=== PATIENT | female | born 2000 | race Caucasian/White ===

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

== ENCOUNTER → 2020-04-23 | Outpatient (CLI) | payer BC, OTHER, MEDICAID ==
[~2020-04-23] MED LIST changes: +ACET-683 PO; -PHEN-593 PO; +PHEN1TAB73 PO
--- NOTE | 2020-04-23 14:32 | REP ---
INDICATION: IUD CHECK COMPARISON: 11/05/2017 TECHNIQUE: Transabdominal pelvic ultrasound followed by transvaginal examination for better evaluation of the endometrium and adnexa with color Doppler evaluation of the ovaries. FINDINGS: Bladder is unremarkable and measures 8.3 x 9.4 x 2.9 cm. Normal retroverted uterus measures 6.8 x 4.2 x 4.7 cm. The endometrial complex appears normal and IUD is identified within central satisfactory position. No uterine abnormalities identified. Bilateral ovaries are normal in appearance and vascularity without evidence for torsion. Right ovary measures 3.7 x 2.1 x 1.9 cm; R I = 0.47. Left ovary measures 2.9 x 1.1 x 1.8 cm; R I = 0.52. No pelvic fluid or adnexal mass lesion IMPRESSION: Normal examination. IUD in satisfactory position. <Electronically signed by Juvenal Rosas > 04/23/20 [id number]
== END ==
LOC: M RAD 09:08
PROVIDERS: ATTEND Advanced Practice Midwife
DX: Z30.431 Encounter for routine checking of intrauterine contraceptive device (principal)

== ENCOUNTER 2020-08-18 09:18 | Emergency (ER) | payer BC, OTHER, MEDICAID ==
[~2020-08-18] VITALS: Ht 170.2 cm; Wt 68.6 kg
[2020-08-18] MEDS ORDERED: NS 1,000 ML IV ONE (09:45)
[2020-08-18] MEDS ORDERED: METOCLOPRAMIDE INJ 10MG/2ML VIAL (J2765 PER 1) IV ONE (09:45)
[2020-08-18 10:51] LABS: BASO % 0.5 % (0.0-1.0); EOS % 0.3 % (0.0-3.0); HEMATOCRIT 43.9 % (36.0-47.0); HEMOGLOBIN 15.5 g/dl (12.0-15.5); LYMPH # 0.9 10^3/uL (1.5-5.0); MEAN CORPUSCULAR HGB CONC 35.3 g/dl (32.0-36.5); MEAN CORPUSCULAR VOLUME 85.1 fl (80.0-96.0); MONO # 0.4 10^3/uL (0.0-0.8); MONO % 9.8 % (2.0-8.0); NEUTROPHILS # 2.6 10^3/uL (1.5-8.5); NEUTROPHILS % 65.9 % (36.0-66.0); PLATELET COUNT, AUTOMATED 171 10^3/uL (150-450); RED BLOOD COUNT 5.16 10^6/uL (4.00-5.40)
[2020-08-18 10:53] LABS: HCG, SERUM QUALITATIVE NEGATIVE (NEGATIVE)
[2020-08-18 10:58] LABS: ALBUMIN 4.1 GM/DL (3.2-5.2); ALT/SGPT 22 U/L (12-78); BILIRUBIN,DIRECT < 0.1 MG/DL (0.0-0.2); BILIRUBIN,TOTAL 1.1 MG/DL (0.2-1.0); BLOOD UREA NITROGEN 14 MG/DL (7-18); CALCIUM LEVEL 9.4 MG/DL (8.5-10.1); CARBON DIOXIDE LEVEL 20 MEQ/L (21-32); CHLORIDE LEVEL 107 MEQ/L (98-107); CK-MB VALUE MASS < 1.0 NG/ML (<3.6); CPK CREATINE PHOSPHOKINASE 150 U/L (26-192); CREATININE FOR GFR 0.82 MG/DL (0.55-1.30); GLUCOSE, FASTING 86 MG/DL (70-100); LIPASE 78 U/L (73-393); MB/CK RELATIVE INDEX 0.67 (< OR =4); NT-PRO BNP 14 PG/ML (<125); POTASSIUM SERUM 4.7 MEQ/L (3.5-5.1); SODIUM LEVEL 137 MEQ/L (136-145); TOTAL PROTEIN 8.6 GM/DL (6.4-8.2); TROPONIN I < 0.02 NG/ML (< 0.10)
--- NOTE | 2020-08-18 12:51 | REP ---
INDICATION: Abdominal Pain COMPARISON: None. TECHNIQUE: Upright view of the chest with supine and upright views of the abdomen and pelvis. FINDINGS: Frontal upright view of the chest demonstrates no acute cardiopulmonary process or free air below the diaphragm to suspect pneumoperitoneum. Supine and upright views of the abdomen and pelvis demonstrate nonspecific bowel gas pattern without obstruction or perforation. No organomegaly. Prior cholecystectomy. No abnormal calcifications. Skeletal structures normal for age. IUD within the pelvis. IMPRESSION: Nonspecific bowel gas pattern. <Electronically signed by Juvenal Rosas > 08/18/20 [id number]
[2020-08-18 14:47] VITALS: BP 119/69
--- NOTE | 2020-08-19 09:23 | ECGEPIP ---
[facility] - ED Test Date: 2020-08-18 Pat Name: RONALD MCKEE Department: Room: - Gender: Female Horse Identifier: : 2000 Requested By: ALEXIS Colon PA-C Order Number: [id number] Reading MD: Amalia Kuhn Measurements Intervals [place] Rate: 78 P: 74 UT: 138 QRS: 63 QRSD: 86 T: 0 QT: 402 QTc: 458 Interpretive Statements Normal sinus rhythm with sinus arrhythmia Nonspecific ST and T wave abnormality No prior Electronically Signed on 08-19-2020 9:22:56 EDT by Amalia Kuhn
== END 2020-08-18 14:53 | disposition home or self-care (01) ==
LOC: M ED 09:18
DX: A08.32 Astrovirus enteritis (principal); R10.9 Unspecified abdominal pain; E86.0 Dehydration; R50.9 Fever, unspecified; R51.9 Headache, unspecified; Z88.2 Allergy status to sulfonamides
CPT/HCPCS: 74021; 80048; 80076; 81001; 82550; 82553; 83690; 83880; 84443; 84484; 84703; 85025; 85379; 87088; 87505; 87804; 93005; 93041; 94760; 96361; 96374; 99284; J2765

== ENCOUNTER 2020-12-04 08:28 | Emergency (ER) | payer BC, OTHER, MEDICAID ==
[~2020-12-04] VITALS: Ht 170.2 cm; Wt 67.0 kg
[2020-12-04 08:28] VITALS: BP 117/64
[2020-12-04] MEDS ORDERED: MIRE1IUD IU (08:34)
[2020-12-04 11:09] LABS: BASO % 0.1 % (0.0-1.0); EOS % 0.2 % (0.0-3.0); HEMATOCRIT 35.7 % (36.0-47.0); HEMOGLOBIN 12.3 g/dl (12.0-15.5); LYMPH # 0.6 10^3/uL (1.5-5.0); MEAN CORPUSCULAR HEMOGLOBIN 30.3 pg (27.0-33.0); MEAN CORPUSCULAR HGB CONC 34.5 g/dl (32.0-36.5); MEAN CORPUSCULAR VOLUME 87.9 fl (80.0-96.0); MONO # 0.6 10^3/uL (0.0-0.8); MONO % 6.2 % (2.0-8.0); NEUTROPHILS # 7.8 10^3/uL (1.5-8.5); NEUTROPHILS % 86.2 % (36.0-66.0); PLATELET COUNT, AUTOMATED 116 10^3/uL (150-450); RED BLOOD COUNT 4.06 10^6/uL (4.00-5.40); WHITE BLOOD COUNT 9.1 10^3/uL (4.0-10.0)
[2020-12-04 11:50] LABS: MONO REFLEX EBV COMP NEGATIVE (NEGATIVE)
[2020-12-04] MEDS ORDERED: CEPH500T PO (11:54)
[2020-12-05 14:09] LABS: EBV AB TO NUCLEAR ANTIGEN >600.0 U/mL (0.0-17.9); EBV VIRAL CAPSID AG IgG >600.0 U/mL (0.0-17.9); EBV VIRAL CAPSID AG IgM <36.0 U/mL (0.0-35.9)
== END 2020-12-04 12:03 | disposition home or self-care (01) ==
LOC: M ED 08:28
DX: J03.90 Acute tonsillitis, unspecified (principal); R50.9 Fever, unspecified; Z88.2 Allergy status to sulfonamides

== ENCOUNTER 2021-02-05 07:54 | Emergency (ER) | payer BC, OTHER, MEDICAID ==
[~2021-02-05] VITALS: Ht 170.2 cm; Wt 66.8 kg
[~2021-02-05 07:54] MED LIST changes: +CEPH500T PO; +MIRE1IUD IU
--- OUTSIDE RECORDS SUMMARY | 2021-02-05 08:08 | CCD ---
Author Author [facility] Organization [facility] Address Unknown Phone Unavailable Care Team Providers Care Senior Manufacturing Test Engineer Name Role Phone Thabet, Nagib RPA-C Unavailable Unavailable Thabet, Nagib RPA-C Unavailable Unavailable Thabet, Nagib RPA-C Unavailable Unavailable Thabet, Nagib RPA-C Unavailable Unavailable Thabet, Nagib RPA-C Unavailable Unavailable Thabet, Nagib RPA-C Unavailable Unavailable Thabet, Nagib RPA-C Unavailable Unavailable Thabet, Nagib RPA-C Unavailable Unavailable Thabet, Nagib RPA-C Unavailable Unavailable Thabet, Nagib RPA-C Unavailable Unavailable Thabet, Nagib RPA-C Unavailable Unavailable Thabet, Nagib RPA-C Unavailable Unavailable Thabet, Nagib RPA-C Unavailable Unavailable Thabet, Nagib RPA-C Unavailable Unavailable Thabet, Nagib RPA-C Unavailable Unavailable Thabet, Nagib RPA-C Unavailable Unavailable Thabet, Nagib RPA-C Unavailable Unavailable Thabet, Nagib RPA-C Unavailable Unavailable Thabet, Nagib RPA-C Unavailable Unavailable Thabet, Nagib RPA-C Unavailable Unavailable Thabet, Nagib RPA-C Unavailable Unavailable Thabet, Nagib RPA-C Unavailable Unavailable Thabet, Nagib RPA-C Unavailable Unavailable Thabet, Nagib RPA-C Unavailable Unavailable Thabet, Nagib RPA-C Unavailable Unavailable Thabet, Nagib RPA-C Unavailable Unavailable Thabet, Nagib RPA-C Unavailable Unavailable Feola, T Tia PA Unavailable Unavailable Feola, T Tia PA Unavailable Unavailable Feola, T Tia PA Unavailable Unavailable Feola, T Tia PA Unavailable Unavailable Feola, T Tia PA Unavailable Unavailable Feola, T Tia PA Unavailable Unavailable Feola, T Tia PA Unavailable Unavailable Feola, T Tia PA Unavailable Unavailable Feola, T Tia PA Unavailable Unavailable Feola, T Tia PA Unavailable Unavailable Feola, T Tia PA Unavailable Unavailable Feola, T Tia PA Unavailable Unavailable Feola, T Tia PA Unavailable Unavailable Feola, T Tia PA Unavailable Unavailable Feola, T Tia PA Unavailable Unavailable Feola, T Tia PA Unavailable Unavailable Feola, T Tia PA Unavailable Unavailable Feola, T Tia PA Unavailable Unavailable Feola, T Tia PA Unavailable Unavailable Feola, T Tia PA Unavailable Unavailable Feola, T Tia PA Unavailable Unavailable Feola, T Tia PA Unavailable Unavailable Feola, T Tia PA Unavailable Unavailable Feola, T Tia PA Unavailable Unavailable Feola, T Tia PA Unavailable Unavailable Feola, T Tia PA Unavailable Unavailable Feola, T Tia PA Unavailable Unavailable Feola, T Tia PA Unavailable Unavailable Feola, T Tia PA Unavailable Unavailable Feola, T Tia PA Unavailable Unavailable Feola, T Tia PA Unavailable Unavailable Feola, T Tia PA Unavailable Unavailable Feola, T Tia PA Unavailable Unavailable Feola, T Tia PA Unavailable Unavailable Feola, T Tia PA Unavailable Unavailable Feola, T Tia PA Unavailable Unavailable Feola, T Tia PA Unavailable Unavailable Feola, T Tia PA Unavailable Unavailable Feola, T Tia PA Unavailable Unavailable Feola, T Tia PA Unavailable Unavailable Feola, T Tia PA Unavailable Unavailable Monnat PA, Lexie PA Unavailable Unavailable Monnat PA, Lexie PA Unavailable Unavailable Monnat PA, Lexie PA Unavailable Unavailable Monnat PA, Lexie PA Unavailable Unavailable BirAdolfo bonner PA Unavailable Unavailable BirAdolfo bonner PA Unavailable Unavailable BirAdolfo bonner PA Unavailable Unavailable BirklAdolfo tidwellel PA Unavailable Unavailable Birklin, Adolfo Aparicioel PA Unavailable Unavailable Birklin, Adolfo Aparicioel PA Unavailable Unavailable Birklin, Adolfo Aparicioel PA Unavailable Unavailable Birklin, Adolfo Aparicioel PA Unavailable Unavailable Birklin, Adolfo Aparicioel PA Unavailable Unavailable Birklin, Adolfo Aparicioel PA Unavailable Unavailable Birklin, Adolfo Aparicioel PA Unavailable Unavailable Birklin, Adolfo Aparicioel PA Unavailable Unavailable Birklin, Adolfo Aparicioel PA Unavailable Unavailable Birklin, Adolfo Aparicioel PA Unavailable Unavailable Birklin, Adolfo Aparicioel PA Unavailable Unavailable Birklin, Adolfo Juanjo PA Unavailable Unavailable Birklin, Adolfo Juanjo PA Unavailable Unavailable Birklin, Adolfo Aparicioel PA Unavailable Unavailable Birklin, Adolfo Aparicioel PA Unavailable Unavailable Birklin, Adolfo Aparicioel PA Unavailable Unavailable Birklin, Adolfo Aparicioel PA Unavailable Unavailable Birklin, Adolfo Aparicioel PA Unavailable Unavailable Birklin, Adolfo Aparicioel PA Unavailable Unavailable Birklin, Adolfo Aparicioel PA Unavailable Unavailable Birklin, Adolfo Aparicioel PA Unavailable Unavailable Birklin, Adolfo Aparicioel PA Unavailable Unavailable Birklin, Adolfo Aparicioel PA Unavailable Unavailable Birklin, Adolfo Aparicioel PA Unavailable Unavailable Re-disclosure Warning The records that you are about to access may contain information from federally-assisted alcohol or drug abuse programs. If such information is present, then the following federally mandated warning applies: This information has been disclosed to you from records protected by federal confidentiality rules (42 CFR part 2). The federal rules prohibit you from making any further disclosure of this information unless further disclosure is expressly permitted by the written consent of the person to whom it pertains or as otherwise permitted by 42 CFR part 2. A general authorization for the release of medical or other information is NOT sufficient for this purpose. The Federal rules restrict any use of the information to criminally investigate or prosecute any alcohol or drug abuse patient.The records that you are about to access may contain highly sensitive health information, the redisclosure of which is protected by Article 27-F of the [facility] Public Health law. If you continue you may have access to information: Regarding HIV / AIDS; Provided by facilities licensed or operated by the [facility] Office of Mental Health; or Provided by the [facility] Office for People With Developmental Disabilities. If such information is present, then the following [facility] mandated warning applies: This information has been disclosed to you from confidential records which are protected by state law. State law prohibits you from making any further disclosure of this information without the specific written consent of the person to whom it pertains, or as otherwise permitted by law. Any unauthorized further disclosure in violation of state law may result in a fine or fci sentence or both. A general authorization for the release of medical or other information is NOT sufficient authorization for further disc losure. Family History Family Member Name Family Member Gender Family Member Status Date o f Status Description Data Source(s) Unknown Male Problem MEDENT ([facility]) Unknown Unknown Problem MEDENT ([facility]) m great grandparents Encounters Encounter Providers Location Date Indications Data Source(s ) Outpatient Attender: Juanjo LIU 12/09/2020 12:00:[address] [facility] Outpatient Attender: Juanjo Taylor PAReferrer: Juanjo LIU [id number] 10/25/2020 12:00:[address] [facility] Outpatient Referrer: Juanjo LIU 10/23/2020 12 :00:00 AM EDT Unspecified internal derangement of right knee [facility] Unspecified internal derangement of righ t knee Outpatient Attender: Lexie LIU 10/09 11:34:16 AM EDT - 10/09/2020 01:04:52 PM EDT [facility] ([facility] ) Outpatient Attender: Juanjo LIU [id number] 09/20 12:00:00 AM EDT - 10/18/2020 10:26:[address] [facility] Outpatient Attender: Bill Moreno RPA-C 08:24:14 PM EDT - 09/14/2020 09:10:37 PM EDT [facility] ([facility]) Outpatient 08/17/2020 06:36:44 PM EDT [facility] ([facility]) Outpatient Attender: Tia LIU 021 10:58:09 AM EDT - 08/08/2020 11:11:20 AM EDT [facility] ([facility] ) [place] [address] [address] 04/29/2020 12:00:00 AM EST eCW1 ([facility]) [place] [address] [address] 04/29/2020 12:00:00 AM EST eCW1 ([facility]) [place] [address] [address] 12/28/2019 12:00:00 AM EDT eCW1 ([facility]) Immunizations Vaccine Date Status Description Data Source(s) COVID-19 VACCINE Moderna 01/07/2021 12:00:00 AM EDT completed [facility] Vaccine Series Complete: YESThis Data wa s Submitted to [facility] Via GetBack. COVID-19 VACCINE Moderna 12/10/2020 12:00:00 AM EDT completed [facility] Vaccine Series Complete: NOThis Data was Submitted to [facility] Via GetBack. Medications Medication Brand Name Start Date Product Form Dose Route Admi nistrative Instructions Pharmacy Instructions Status Indications Reaction Description Data Source(s) 100 mcg/0.5 mL 12/10/2020 12:00:00 AM EDT suspension 0 INJECT DIRECTED INJECT DIRECTED SOLD: 12/10/2020 [facility] 100 mcg/0.5 mL 12/10/2020 12:00:00 AM EDT suspension 0 INJECT DIRECTED INJECT DIRECTED SOLD: 01/07/2021 [facility] Sertraline 50 MG Oral Tablet Sertraline HCl 50 MG Sertraline HCl 50 MG 12/28/2019 12:00:00 AM EDT 1.0 {tablet} active Sertraline HCl 50 MG eCW1 ([facility]) Sertraline 50 MG Oral Tablet Sertraline HCl 50 MG Sertraline HCl 50 MG 12/28/2019 12:00:00 AM EDT 1.0 {tablet} active Sertraline HCl 50 MG eCW1 ([facility]) Sertraline 50 MG Oral Tablet Sertraline HCl 50 MG Sertraline HCl 50 MG 12/28/2019 12:00:00 AM EDT 1.0 {tablet} active Sertraline HCl 50 MG eCW1 ([facility]) 21 DAY Ethinyl Estradiol 0.588541 MG/HR / Etonogestrel 0.005 MG/HR Vaginal Ring etonogestrel-ethinyl estradiol (NUVARING) 0.12-0.015 MG/24HR vaginal ring etonogestrel-ethinyl estradiol (NUVARING) 0.12-0.015 MG/24HR vaginal ring 02/03/2018 12:00:00 AM EST aborted Insert vaginally and leave in place for 3 consecutive weeks, then remove for 1 week. [facility] Dicyclomine Hydrochloride 20 MG Oral Tablet dicyclomin e (BENTYL) 20 MG tablet dicyclomine (BENTYL) 20 MG tablet 12/30/2017 12:00:00 AM EDT aborted TK 1 T PO TID 30 MINUTES BEFORE MEALS MI N [facility] Omeprazole 20 MG Delayed Release Oral Ca psule omeprazole (PRILOSEC) 20 MG capsule omeprazole (PRILOSEC) 20 MG capsule 20 mg Oral aborted Take 20 mg by mouth daily [facility] Simethicone 80 MG Chewable Tablet simethicone (MYLICON ) 80 MG chewable tablet simethicone (MYLICON) 80 MG chewable tablet 80 mg Oral aborted Chew 80 mg by Mouth every 6 (six) hours as needed for Flatulence [facility] Insurance Providers Payer name Policy type / Coverage type Policy ID Covered alliance party ID Covered alliance party's relationship to sanchez Policy Sanchze Plan Information [facility] Maintenance [facility] ([facility]) [id number] Family Dependent [id number] [facility] ([facility]) 8 [id number] Family Dependent [id number] [facility] [id number] Chi [id number] EMPIRE PLAN [facility] U [id number] Child [id number] [facility] [id number] Chi [id number] MPN OP HOSP ONLY U [id number] Child [id number] EXCELLUS BCBS [id number] Chi YLS [id number] [facility] [id number] FA2 [id number] BCBS EMPIRE CAT[place]INA DIV [id number] FA2 [id number] BCBS EMPIRE CAT[place]INA DIV [id number] FA2 [id number] [employer] [facility] [id number] FA2 [id number] Sayner Plan F [id number] PARENT [id number] [employer] [id number] FA2 [id number] BCBS EMPIRE CATALINA DIV [id number] FA2 [id number] [employer] [id number] FA2 [id number] [facility] Commercial Insurance Co. [id number] Parent [id number] [facility] emp [id number] Emplo ortiz [id number] [facility] emp [id number] Employee [id number] RPR- Needs Payer Match [id number] Parent [id number] [place] Commercial [employer] Co. [id number] Parent [id number] EXCELLUS BCBS PI PI UHC PI PI BCBS EMPIRE CAT[place]INA DIV [id number] FA2 [id number] [place] [id number] SP [id number] P [id number] BCBS EMPIRE CAT[place]INA DIV [id number] FA2 [id number] [employer] [id number] FA2 [id number] [place] [id number] SP [id number] MEDICAID M [id number] S [id number] [employer] O [id number] S [id number] EMEDNY [id number] SP [id number] UNITED HEALTHCARE [id number] FA2 [id number] BCBS EMPIRE CAT[place]INA DIV [id number] FA2 [id number] BCBS EMPIRE [id number] CHILD [id number] [facility] [id number] CHILD [id number] [facility] [place] Commercial [id number] Family Dependent [id number] ANSI-Commercial [id number] ANSI-Commercial [id number] ANSI-Commercial [id number] ANSI-Commercial [id number] [facility] [place] [id number] Family Dependent [id number] ANSI-Commercial [id number] [facility] [place] [id number] Family Dependent 8 [id number] [facility] [place] [id number] Family Dependent [id number] Problems, Conditions, and Diagnoses Code Display Name Description Problem Type Effective Dates Data Source(s) M25.461 Effusion, right knee Effusion, right knee Diagnosis 10/23/2020 03:17:07 PM T [facility] M23.91 Unspecified internal derangement of righ t knee Unspecified internal derangement of right knee Diagnosis 10/23/2020 03:17:[address] [facility] Surgeries/Procedures No Information Results ID Date Data Source [id number] 12/31/2020 12:00:00 AM EDT [facility] Name Value Range Interpretation Code Description Data Ivelisse rce(s) Supporting Document(s) SARS coronavirus 2 Ag NEGATIVE [facility] This lab was ordered by [facility] and reported by [facility]. ID Date Data Source [id number] 12/24/2020 12:00:00 AM EDT [facility] Name Value Range Interpretation Code Description Data Ivelisse rce(s) Supporting Document(s) SARS coronavirus 2 Ag NEGATIVE [facility] This lab was ordered by [facility] and reported by [facility]. ID Date Data Source [id number] 12/17/2020 12:00:00 AM EDT [facility] Name Value Range Interpretation Code Description Data Ivelisse rce(s) Supporting Document(s) SARS coronavirus 2 Ag NEGATIVE [facility] This lab was ordered by [facility] and reported by [facility]. ID Date Data Source [id number] 12/10/2020 12:00:00 AM EDT [facility] Name Value Range Interpretation Code Description Data Ivelisse rce(s) Supporting Document(s) SARS coronavirus 2 Ag NEGATIVE [facility] reported by [facility]. ID Date Data Source [id number] 11/28/2020 12:00:00 AM EDT [facility] Name Value Range Interpretation Code Description Data Ivelisse rce(s) Supporting Document(s) SARS coronavirus 2 Ag NEGATIVE [facility] This lab was ordered by [facility] and reported by [facility]. ID Date Data Source [id number] 10/25/2020 10:05:45 AM EDT [facility] Name Value Range Interpretation Code Description Data Ivelisse rce(s) Supporting Document(s) Progress Note [facility] OPLYHk7lArCAOsUq21/YAIebEAUtt4OkQItzURy9XBdeGLSlI2RwTHL7oU8pVOM0LTeIHlNjZoJcMFF2 [facility] [file] ICAgICAgICAgICAgICAgICAgICAgICAgICAgICAgICAgICAgICAgICAgICAgICAgICAgICAgICAgICAg ICAgICAgICAgICANCiAgICAgICAgICAgICAgICAgIC AgICAgICAgICAgICAgICAgICAgICAgICAgICAgICAgICAgICAgICAgICAgICAgICAgICAgICAgICAgIC AgICAgICAgICAgICAgICAgICAgICANCiAgICAgICAgICAgICAgICAgICAgICAgICAgICAgICAgICAgIC AgICAgICAgICAgICAgICAgICAgICAgICAgICAgICAg ICAgICAgICAgICAgICAgICAgICAgICAgICAgICAgICANCiAgICAgICAgICAgICAgICAgICAgICAgICAg ICAgICAgICAgICAgICAgICAgICAgICAgICAgICAgICAgICAgICAgICAgICAgICAgICAgICAgICAgICAg ICAgICAgICAgICAgICANCiAgICAgICAgICAgICAgIC AgICAgICAgICAgICAgICAgICAgICAgICAgICAgICAgICAgICAgICAgICAgICAgICAgICAgICAgICAgIC AgICAgICAgICAgICAgICAgICAgICAgICANCiAgICAgICAgICAgICAgICAgICAgICAgICAgICAgICAgIC AgICAgICAgICAgICAgICAgICAgICAgICAgICAgICAg ICAgICAgICAgICAgICAgICAgICAgICAgICAgICAgICAgICANCiAgICAgICAgICAgICAgICAgICAgICAg ICAgICAgICAgICAgICAgICAgICAgICAgICAgICAgICAgICAgICAgICAgICAgICAgICAgICAgICAgICAg ICAgICAgICAgICAgICAgICANCiAgICAgICAgICAgIC AgICAgICAgICAgICAgICAgICAgICAgICAgICAgICAgICAgICAgICAgICAgICAgICAgICAgICAgICAgIC AgICAgICAgICAgICAgICAgICAgICAgICAgICANCiAgICAgICAgICAgICAgICAgICAgICAgICAgICAgIC AgICAgICAgICAgICAgICAgICAgICAgICAgICAgICAg ICAgICAgICAgICAgICAgICAgICAgICAgICAgICAgICAgICAgICANCiAgICAgICAgICAgICAgICAgICAg ICAgICAgICAgICAgICAgICAgICAgICAgICAgICAgICAgICAgICAgICAgICAgICAgICAgICAgICAgICAg ICAgICAgICAgICAgICAgICAgICANCjw/dLQvW6pagN PiudE7R6viIq5VWz0TOW3ei1XwDMBxKPlpmwDiJbyLWaQiCSYhSukTWff1NEyyPQ5IgAQgJ5NfB3MtDI tqSB0GTKOxCZPqoCAtRHYeTNIaFuK6KEHyCBgxNQ1IvJKqPDcnIOTaNOVzJtQaUPJyMH2TIWItT074fy UjGu2XSf3NHaLpPF7nay1TAbnzJVMgSvgQFna4XVoz MM3BjVXviULrJUIkDDJVEwVyJ8lqh6VjJqwxPHZBBUujIO9Fu8LbwVAhEKa+Tj3TAU3go6TfVAdrMRHl CR7bkc7AVJuZYzIsG4PwmUtfCKDmd4mqRIDwMQ4slMCnJMB7OYPgcklglNJRTSHuGDUPbQRbiClaULFR LTLhpQN6CpOgQyXgSQNtUOlxLBDJDIgQGwGxS6Jbv6 MzZuY8IPZdJvEuCZfqAUCiYhU0NG71rJgmMI6OSIDuDSJdAI53ZGP9GRWkKt0IUb3FBkYaVK9mtx4PZA ZiKDOmLpeCSrx9ULklQQ8UyKUgR6EyjSHcp7bTEtYhV7MWVVX3DMRmGe4LLSKqEgRaOGBxSXzeWQ7dEG FwWOTChBnllxT1AV5NHJ2fupIhIH9BFdZkTh9kDj6D TxZjJ4LpH8HfBJMfWPQCAEwcFM7IFQirTW4dOU2Vq3ROuIAacL0asq4LLPZaXMPdIieczs7JZllkA2L9 sUfuZRFcVeqzWVWHWBmtVM3UDJZuAZG9DONbRzOqFZXIDiYwO83mWQ3DQ5Fad64mFiX0TFCxVcFjUVxn SQ30pZptbkVgcPWhvVktXV7ZHh2+DQplbmRvYmoNCn keIAFLReIqOBKXUhMpSYTgNHObGJQyNgA2PqOaPh6QORFpCYVzRYAwAcTzLHSvYBYuFErsFFOyNJHwGh I1PBAtOCUvBH2ABkRbPYLnYxX1QcViUBSqAPXrdv4DJBApFVGdSMO2QhNiOZYcGTToWHfrLZEaSQJ3RJ sgAVHsZJBhQX5KZgGyJEExTLClMcutJJOtWNLcua4M FNWsRBTlPgOjDHVgKMScTYAcMElsKZMiDJE3CxEzQIXuPWQxMJ8PUgBtLEFpNYrwFCMdYYQzCESozj4T FIRbIERyOFO1HqYgJIEcIAVqSMxcQNKzEXT8MMV4MMYiQBSwLM0RAcXnYZHnOJz2TzijQNKyWLKzxu5M XPEfSCGmBTbeCNKfCFPoVPGuDClwGYDkVGI8EBJ5VW CqWKFgKT8IZkKsAPGrHlZlTMoaPMYwGLBoxt2DOKGtULAcFNW8OqXaZGXlHQAnOMypEBRwDBDjITijUP IdDVMaXB5YLkHbZSQzYoWnAgLaUSUrPNYymw7CAPSdJPCnTjC0CsOpXHVfBOBbGPwbZCLeURLsLlXhCK KhTTWzTX1USuDdSRSvBfI5RMJdXYRzLSRjqd5YAGXb GXDyWwN6GjBoPIDwOWHoSEkfRUZhSFX2DJT1YZAzCGMnGQ0YKsYnJLOpHvZ7HyPqNSPvFBMqod0EMIMt OYWcDWtnBMChOOMeUTGhSRjaVDFdJJN0VUT6FLQrWGHdYC8XVbQuZLYrDxZqMHLvRXAvSFSstq2UEGMh GDEoSmMwVVAgRVUaPKPdBIgpDVFgTUGpIHH9QBDnLL KcHL0CJvPxGKOaIaMyLXehOOLqSVBesq9ULRUuMTUdUJVbWaGoVTWnTSFuCArcORJlXZQpJGCjPEWuHH KcDW5OMiQuQUCkErSxKPJwSDShCHDwnd4OQIOvNPLdBwIfASWmREFcRWSyBAqlZHPyMOKuCCO5WWRkUE NjVY8FHbIkNSNhGbZ1CXFiCGEyFIKdkg7KBZMhBKNe YrE9YbEaIETuEWXvFKmpNEGbAHT3IYY5TWFaNVHgGD6IBdLgGHSaUlS5KCcnZSZiNCMqfh2CZEHtFMMk WXx4RkBsEAEsKFWhAAw9lsNnjZVzPVq2YC6JC9TqdxVkSLXBMc1Be253SWQhTXBgXy8BG7rtId2iTIKd JWDCQp4JVVm4QQx0YzxtYrMeCVAgFWC9AYSdQTA8O6 MxMzgxYzgzNTA+SBxsJbFhROE4THVmXFUgErIqRTMbKyrbNjIiQHNoNRB8CF0rUKJKLc3+DQpzdGFydH zeHRXKBaA6WAe0EPqhTSYQKi1X ID Date Data Source [id number] 10/23/2020 04:26:18 PM EDT [facility] MR EXTREMITY LOWER JOINT WITHOUT CONTRAS T [id number] RESULTInterpreted by:Bhupinder Warren MDEXAM: MRI Right Knee Without ContrastHISTORY: Medial Knee pain with instability, history of patellar tendinitis, partial tear, symptoms on clinical exam with mild knee effusionCOMPARISON: Knee radiographs 10/09/2020TECHNIQUE: Multiplanar multisequence MR imaging of the right knee was performed. Intravenous gadolinium contrast was not administered. Exam was performed on a 3.0 Lynda GE MRI unit. FINDINGS: The anterior and posterior cruciate ligaments are intact. Medial and lateral collateral ligaments are intact. Quadriceps tendon complex and patellar tendon are also intact.Medial Compartment: The medial meniscus and articular cartilage are intact. Lateral Compartment: There is intermediate intrasubstance signal within the central anterior horn lateral meniscus which extends to the inferior articular surface on a single sagittal image, suspicious for a nonspecific oblique undersurface meniscal tear. No articular cartilage defect.Patellofemoral Compartment: Patellar and trochlear articular cartilage are normal. Patella is normal in position at the trochlear groove and the retinacula are intact. 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 No adjacent patellar tendon tear or tendinosis.No knee joint effusion or popliteal cyst. No fracture or significant marrow signal abnormality.IMPRESSION: 1. 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 No adjacent tendon tear or tendinosis.2. Small signal abnormality within the central anterior horn lateral meniscus, which extends to the inferior articular surface on a single sagittal image, and is suspicious for a nondisplaced oblique undersurface lateral meniscal tear, although the MRI appearance is not definitive. Further clinical correlation is advised, as no lateral joint line pain is reported. If further radiologic characterization/evaluation is requested, a follow-up MRI knee arthrogram could also be considered.This document has been electronically signed by Bhupinder Warren MD on 10/23/2020 4:24 PM Name Value Range Interpretation Code Description Data Ivelisse rce(s) Supporting Document(s) ID Date Data Source [id number] 10/10/2020 12:08:17 AM [facility] Name Value Range Interpretation Code Description Data Ivelisse rce(s) Supporting Document(s) Progress Note [facility] OUNQTq5iWnWDFwXe95/USApyQRMpl2KfYDanIVt3FZsbQOIqR8XiVDX5yC3uUXB8NPvLWxMzClStZpAf lbm [file] AgICAgICAgICAgICAgICAgICAgICAgICAgICAgICAgICAgICAgICAgICAgICAgICAgICAgICAgICAgIC AgDQogICAgICAgICAgICAgICAgICAgICAgICAgICAg ICAgICAgICAgICAgICAgICAgICAgICAgICAgICAgICAgICAgICAgICAgICAgICAgICAgICAgICAgICAg ICAgICAgICAgICAgDQogICAgICAgICAgICAgICAgICAgICAgICAgICAgICAgICAgICAgICAgICAgICAg ICAgICAgICAgICAgICAgICAgICAgICAgICAgICAgIC AgICAgICAgICAgICAgICAgICAgICAgDQogICAgICAgICAgICAgICAgICAgICAgICAgICAgICAgICAgIC AgICAgICAgICAgICAgICAgICAgICAgICAgICAgICAgICAgICAgICAgICAgICAgICAgICAgICAgICAgIC AgICAgDQogICAgICAgICAgICAgICAgICAgICAgICAg ICAgICAgICAgICAgICAgICAgICAgICAgICAgICAgICAgICAgICAgICAgICAgICAgICAgICAgICAgICAg ICAgICAgICAgICAgICAgDQogICAgICAgICAgICAgICAgICAgICAgICAgICAgICAgICAgICAgICAgICAg ICAgICAgICAgICAgICAgICAgICAgICAgICAgICAgIC AgICAgICAgICAgICAgICAgICAgICAgICAgDQogICAgICAgICAgICAgICAgICAgICAgICAgICAgICAgIC AgICAgICAgICAgICAgICAgICAgICAgICAgICAgICAgICAgICAgICAgICAgICAgICAgICAgICAgICAgIC AgICAgICAgDQogICAgICAgICAgICAgICAgICAgICAg ICAgICAgICAgICAgICAgICAgICAgICAgICAgICAgICAgICAgICAgICAgICAgICAgICAgICAgICAgICAg ICAgICAgICAgICAgICAgICAgDQogICAgICAgICAgICAgICAgICAgICAgICAgICAgICAgICAgICAgICAg ICAgICAgICAgICAgICAgICAgICAgICAgICAgICAgIC AgICAgICAgICAgICAgICAgICAgICAgICAgICAgDQogICAgICAgICAgICAgICAgICAgICAgICAgICAgIC AgICAgICAgICAgICAgICAgICAgICAgICAgICAgICAgICAgICAgICAgICAgICAgICAgICAgICAgICAgIC NlYXQdQIPeJBBzOBm7V9lhIPXsOTSwDF2nFJy8Gm6+ GVoTJqSiCKF3glWvhQ7ECK7pr3TyPGypYMNha6XaPQh3FW7PKILhSImkAZ3PHCdzml8WJZXhDCRcoXEI i3eoXjNqUKB3NYLiQqqtOH7MJOMrA1vzlnVhTDDoFHZWIGoxPFZVXOmcKPUFQD9WFbEvF2HbgK76VGGM Cj4+OFwrtoYqWozTMsMuGZYug1HfKVi3XN5HRSBlUt wpf3NjYRQiBFYYLPbvXB0THQL4YFYsBHEmDn1KEFPxS594ewDhSD8YFr2EEuVfSS0ocb6EKSAoANGuYn zYYkv1TBnmOS2AmTSdQHiCke8gmoOxcuZPe7SymoSpuPJEMZ0fZYqcOPB2cYDsOpxzj7oorfpyGOFpQO VkWi2yIV9bMXHcHLKfNpH9KFYXEF9WFNPjGDQpmZXr KIZdZUGQTC2SHMwnCHG6WCVtjvGsiDKbRCpyPX3PGATrwwJdEJFeOZIORAz+Ca1IWN4ok7BnHZs4IfWp XF3hrz8IHWlDBgTdL2A7qOZfA2R8NEodKs3ODAAgJUXuMhwgMMYECTitRS5UTN1rbxP1IY0MyZMqNRNn VQTauIQnAYs6N01arCWyJPtcYD5WZUD+Neri+Pg0KIC HwDPMxVWDzShHbFZALGcGqE6ZkQ5FQw4SoP1ZuKC64iBxiqzXkQZsiUJ9FAP6aOLOmXIAYDM0HdQBjeM 9ndxX3CMTeMFWKZlSnM07jkRFkBJCyGHO8AAJcBo7DRUInQ9VqscVhyMlwqcXdJYPkEOFPUY3WUNdmhy FgqAGcfIvpSN51cMirIY1WDh2JXrBnAI3zow8NtSHq Tr6VFJG4Zt4TWPVjTKHtERIoXCV2JHHnOyVlKYpjADUsGRIjZVN9JOVtURSzYT4DWmSbNRKfELK4IPJc JCAzYXOoab2IMAIfKZZ0PROrYKUqSDAxEUKoUYglNSQmPRWrRHP0GREvIXTmPQ2FXrZfCKFnVTI6GFGv TBJgXAVjkm8BNWNaAJEdMblxKkLqRPUvHTInZMveXE EiBZM8Pft3KJMiEBEhCU6DNyGaWKUfGEV9DBwmUDEqIKBfeh0XOJWhOLKfLYU7ZKZgWQHuPUZnCAmfEF YvIPG7HEG7QOSjEQPiQW1AYzUgCQMdPOR1WznbQFFrZNPbpb3ISNRiLEKdVXXsCjVlFDTzJMLrAFrpMP JlSFLgTvC3TUZqDNOjEN0OElHwDZTpXABjPjkkWCDb RABkfj2LXWAyLRRzXwK6AYYmQXYrPKDhGMjxEWUxLMByMZG1GIMcTBYaDA1TTuPzSBFbOpP6ViAdEQOf FDDeob6OGXJhPICzIIP9TjNzUOClCHOdIHkuUBSwEOA6HgUiECWiQHDkQY5ITtWoJBUqAoK8IFgsVFPg UUXgcq9PBLNuUWOoWqF1SZLyEVDyHJKlRRkeXQCgWV C9HKa8WUUbLULsRM7WAaEgIJCrDqmjXKDxWLEqVLBapf4OWVQnWMPlEiJ6VcXeMMAuYGXdUIaxBDLiDG N7EqR2AKHyZEDxNA6DEmWnKIOzDrw1BMqzAPIvEECwqe0CGPTwSBFmPYU7CqOiSOBtCDAtRNubWMEfMU M6YcC8TXStXYEnLU1QDqXmZMInObo2DUmsAJFsDGZh sr9NTIYwPAXhDJn1ZLGySIOfWZSlQWbpCKOuDYW4BFX2YBUbFBKgPG7EHmFwTIKxUELtScMcDTFyMYCc fe9LNSTcXRT6AFW2MfLdUKUcYOPqEKjcWPXjGLJ7MfB4SWDnYCTrQO6FIbPaIBJhSEW8GFIoNZUrDKZs bl8QAUGlYQB0UKy1FeMoUZMpLIMcDQhiOYYoIGN2Ov KfUQRjXCOqHH2XMrUoTPJmLHLiZevoHPLfEKWper2THUBbQJU7Vkj1BJVuUQYdRPXjCZqtEGCuTDY9Ih GcVEFxQXYpRI6KHfXnWIUvYTrrMQOgMKZxUHAgpu9MHFPjEUO5XTKbPmSoTPFiLZOiWJy8uoDaoUWlPU u9IV6LC1YporQwPQHTMa0Ua850KNEdUWGbCf4CE0qp Sr7lJSIkFXYOKk1XZAv6UhToXTAdNtM9Nne6PZMgDrSbIUmfDurlKUoxJKKsKQF+QFzcMVK0VFPxSSLv HPjzSiQrBaH9CXVqU9YuM8Q0OyXzXP0yFIYSXx5+VDfoiPSsiWocIIWNUgD7WzbdDQbtOBEUBj4R ID Date Data Source [id number] 09/14/2020 07:26:00 PM EDT [facility] Name Value Range Interpretation Code Description Data Ivelisse rce(s) Supporting Document(s) SARS-CoV-2 RNA Resp Ql RADHA+probe NOT DETECTED [facility] This lab was ordered by JHON otto and reported by [facility]. ID Date Data Source [id number] 08/27/2020 02:33:01 PM EDT [facility] [place] [facility] Name Value Range Interpretation Code Description Data Ivelisse rce(s) Supporting Document(s) QUANTIFERON TB QUAL@ (NEG) [facility] IFN-gamma response to M. tuberculosis an tigenswas not detected, therefore, infection withM. tuberculosis is unlikely. In patients athigh risk for M. tuberculosis infection, analternate test should be considered. Interferon-gamma release is a qualitativeresult based on the interpretation of theNIL, MITOGEN minus NIL, TB1 minus NILand TB2 minus NIL. If you need moreinformation on interpretation, please contactthe Chemistry Laboratory. TB1 MINUS NIL @ 0.02 IU/mL [facility] [place] [facility] TB2 MINUS NIL @ 0.03 IU/mL [facility] [place] [facility] MITOGEN MINUS NIL @ 9.97 IU/mL [facility] NIL RESULT @ 0.03 IU/mL [facility] [place] [facility] ID Date Data Source [id number] 08/26/2020 02:49:29 PM EDT [facility] [place] [facility] Name Value Range Interpretation Code Description Data Ivelisse rce(s) Supporting Document(s) HEP B S AB QUANT @ [facility] A MINIMUM LEVEL OF 10 mIU/mL IS SUGGESTE DTO INSURE COMPLETE IMMUNITY. IF NEGATIVEOR LESS THAN 10 mIU/mL AT 1 TO 2 MONTHSFOLLOWING THE FINAL DOSE OF THE HEP BVACCINE SERIES, REVACCINATION ISRECOMMENDED FOR SELECT PATIENT POPULATIONS(SEE MMWR 2018:67(1) APR 02, 2017). ID Date Data Source [id number] 08/18/2020 09:03:00 AM EDT [facility] Name Value Range Interpretation Code Description Data Ivelisse rce(s) Supporting Document(s) SARS COVID ANTIGEN NEGATIVE [facility] This lab was ordered by MARYLIN berrios nd reported by [facility]. ID Date Data Source [id number] 03/24/2020 12:00:00 AM EST [facility] Name Value Range Interpretation Code Description Data Ivelisse rce(s) Supporting Document(s) SARS coronavirus 2 RNA [Presence] in Res piratory specimen by RADHA with probe detection [facility] This lab was ordered by Boston Patten and reported by [employer]. Procedure Social History Code Duration Value Status Description Data Source(s ) Alcohol intake 10/25/2020 12:00:00 AM EDT Current non-d dariel of alcohol (finding) completed Current non-drinker of alcohol (finding) [facility] Tobacco use and exposure 10/25/2020 12:00:00 AM EDT Never used co mpleted Never used [facility] Smoking 10/25/2020 12:00:00 AM EDT Never smoker completed Never s moker [facility] Alcohol intake 10/09/2020 12:00:00 AM EDT Current non-d dariel of alcohol (finding) completed Current non-drinker of alcohol (finding) [facility] Vital Signs ID Date Data Source UNK Name Value Range Interpretation Code Description Data Source(s) Body weight 147 [lb_av] 147 [lb_av] eCW1 ([facility]) Body height 67.5 [in_i] 67.5 [in_i] eCW1 ([facility]) Body mass index (BMI) [Ratio] 22.68 kg/m2 22.68 kg/m2 eCW1 ([facility]) Heart rate 84 /min 84 /min eCW1 ([facility]) Respiratory rate 18 /min 18 /min eCW1 ([facility]) Body temperature 98.4 [degF] 98.4 [degF] eCW1 ( [facility]) Systolic blood pressure 113 mm[Hg] 113 mm[Hg] e CW1 ([facility]) Diastolic blood pressure 73 mm[Hg] 73 mm[Hg] eCW1 ([facility]) Patient Treatment Plan of Care Planned Activity Planned Date Details Description Data Source (s) Sertraline 50 MG Oral Tablet 12/28/2019 12:00:00 AM EDT eCW1 ([facility]) Sertraline 50 MG Oral Tablet 12/28/2019 12:00:00 AM EDT eCW1 ([facility]) Sertraline 50 MG Oral Tablet 12/28/2019 12:00:00 AM EDT eCW1 ([facility]) 21 DAY Ethinyl Estradiol 0.042653 MG/HR / Etonogestrel 0.005 MG/HR Vaginal Ring 02/03/2018 12:00:00 AM EST [facility] Dicyclomine Hydrochloride 20 MG Oral Tablet 12/30/2017 12:00:00 AM EDT [facility] Omeprazole 20 MG Delayed Release Oral Capsule [facility] Simethicone 80 MG Chewable Tablet [facility]
--- OUTSIDE RECORDS SUMMARY | 2021-02-05 10:17 | CCD ---
Author Author [facility] Organization [facility] Address Unknown Phone Unavailable Care Team Providers Care Call Or Contact Centre Team Leader Name Role Phone Thabet, Nagib RPA-C Unavailable [...] T Tia PA Unavailable Unavailable Feola, T Tai PA Unavailable Unavailable Feola, T Tia PA [...] is protected by Article 27-F of the [facility] Public Health law. If you continue you may have access to information: Regarding HIV / AIDS; Provided by facilities licensed or operated by the [facility] Office of Mental Health; or Provided by the [facility] Office for People With Developmental Disabilities. If such information is present, then the following [facility] mandated warning applies: This information has been [...] law may result in a fine or detention sentence or both. A general authorization for [...] Outpatient Attender: Juanjo LIU 12/09/2020 12:00:00 AM [facility] Outpatient Attender: Juanjo Taylor PAReferrer: Juanjo LIU [id number] 10/25/2020 12:00:00 AM [facility] Outpatient Referrer: Juanjo LIU 10/23/2020 12 :00:00 AM EDT Unspecified internal derangement of right knee [facility] Unspecified internal derangement of righ t knee Outpatient Attender: Lexie LIU 10/09 11:34:16 AM EDT - 10/09/2020 01:04:52 PM EDT [facility] ([facility] ) Outpatient Attender: Juanjo LIU [id number] 09/20 12:00:00 AM EDT - 10/18/2020 10:26:19 AM [facility] Outpatient Attender: Bill Moreno RPA-C 08:24:14 PM EDT - 09/14/2020 09:10:37 PM EDT [facility] ([facility]) Outpatient 08/17/2020 06:36:44 PM EDT [facility] ([facility]) Outpatient Attender: Tia LIU 021 10:58:09 AM EDT - 08/08/2020 11:11:20 AM EDT [facility] ([facility] ) [place] [address] [place] [address] 04/29/2020 12:00:00 AM EST eCW1 ([facility]) [place] [address] [place] [address] 04/29/2020 12:00:00 AM EST eCW1 ([facility]) Outpatient [address] [place] [address] 12/28/2019 12:00:00 AM EDT eCW1 ([facility]) Immunizations Vaccine Date Status Description Data Source(s) COVID-19 VACCINE Moderna 01/07/2021 12:00:00 AM EDT completed [facility] Vaccine Series Complete: YESThis Data wa s Submitted to [facility] Via [employer]. COVID-19 VACCINE Moderna 12/10/2020 12:00:00 AM EDT completed [facility] Vaccine Series Complete: NOThis Data was Submitted to [facility] Via [employer]. Medications Medication Brand Name Start Date Product [...] {tablet} active Sertraline HCl 50 MG eCW1 ([facility]) Sertraline 50 MG Oral Tablet Sertraline HCl 50 MG Sertraline HCl 50 MG 12/28/2019 12:00:00 AM EDT 1.0 {tablet} active Sertraline HCl 50 MG eCW1 ([facility]) Sertraline 50 MG Oral Tablet Sertraline HCl 50 MG Sertraline HCl 50 MG 12/28/2019 12:00:00 AM EDT 1.0 {tablet} active Sertraline HCl 50 MG eCW1 ([facility]) 21 DAY Ethinyl Estradiol 0.214068 MG/HR / Etonogestrel 0.005 MG/HR Vaginal Ring etonogestrel-ethinyl estradiol (NUVARING) 0.12-0.015 MG/24HR vaginal ring etonogestrel-ethinyl estradiol (NUVARING) 0.12-0.015 MG/24HR vaginal ring 02/03/2018 12:00:00 AM EST aborted Insert vaginally and leave in place for 3 consecutive weeks, then remove for 1 week. [facility] Dicyclomine Hydrochloride 20 MG Oral Tablet dicyclomin e (BENTYL) 20 MG tablet dicyclomine (BENTYL) 20 MG tablet 12/30/2017 12:00:00 AM EDT aborted TK 1 T PO TID 30 MINUTES BEFORE MEALS ND N [facility] Omeprazole 20 MG Delayed Release Oral Ca psule omeprazole (PRILOSEC) 20 MG capsule omeprazole (PRILOSEC) 20 MG capsule 20 mg Oral aborted Take 20 mg by mouth daily [facility] Simethicone 80 MG Chewable Tablet simethicone (MYLICON ) 80 MG chewable tablet simethicone (MYLICON) 80 MG chewable tablet 80 mg Oral aborted Chew 80 mg by Mouth every 6 (six) hours as needed for Flatulence [facility] Insurance Providers Payer name Policy type / Coverage type Policy ID Covered green party ID Covered green party's relationship to sanchez Policy Sanchez Plan Information [facility] Maintenance [facility] ([facility]) [id number] Family Dependent [id number] [facility] ([facility]) [id number] Family Dependent [id number] [facility] [id number] Chi [id number] EMPIRE PLAN [facility] U [id number] Child [id number] [facility] [id number] Chi [id number] MPN OP HOSP ONLY U [id number] Child [id number] EXCELLUS BCBS [id number] Chi YLS [id number] [facility] [id number] FA2 [id number] BCBS EMPIRE [place] DIV [id number] FA2 [id number] BCBS EMPIRE CAT[place] DIV [id number] FA2 [id number] [employer] [facility] [id number] FA2 [id number] [place] Plan F [id number] PARENT [id number] [employer] [id number] FA2 [id number] BCBS EMPIRE [place] DIV [id number] FA2 [id number] [employer] [id number] FA2 [id number] [facility] Commercial Insurance Co. [id number] Parent [id number] [facility] emp [id number] Emplo ortiz [id number] [facility] emp [id number] Employee [id number] RPR- Needs Payer Match [id number] Parent [id number] [facility] Commercial Insurance Co. [id number] Parent [id number] EXCELLUS BCBS PI PI UHC PI PI BCBS EMPIRE [place] DIV [id number] FA2 [id number] [place] [id number] SP [id number] P [id number] BCBS EMPIRE [place] DIV [id number] FA2 [id number] [employer] [id number] FA2 [id number] EMED[place] [id number] SP [id number] MEDICAID M [id number] S [id number] [employer] O [id number] S [id number] EMEDNY [id number] SP [id number] [employer] HE[employer]ARE [id number] FA2 [id number] BCBS EMPIRE [place] DIV [id number] FA2 [id number] BCBS EMPIRE [id number] CHILD [id number] [facility] [id number] CHILD [id number] [facility] [place] Commercial [id number] Family Dependent [id number] ANSI-Commercial [id number] ANSI-Commercial [id number] ANSI-Commercial [id number] ANSI-Commercial [id number] [facility] [employer] [id number] Family Dependent [id number] ANSI-Commercial [id number] [facility] [place] [employer] [id number] Family Dependent [id number] [facility] [place] [employer] [id number] Family Dependent [id number] Problems, Conditions, and Diagnoses Code Display Name Description Problem Type Effective Dates Data Source(s) M25.461 Effusion, right knee Effusion, right knee Diagnosis 10/23/2020 03:17:07 PM T [facility] M23.91 Unspecified internal derangement of righ t knee Unspecified internal derangement of right knee Diagnosis 10/23/2020 03:17:07 PM [facility] Surgeries/Procedures No Information Results ID Date Data Source [id number] 12/31/2020 12:00:00 AM EDT [facility] Name Value Range Interpretation Code Description Data Ivelisse rce(s) Supporting Document(s) SARS coronavirus 2 Ag NEGATIVE [facility] This lab was ordered by [facility] and reported by [facility]. ID Date Data Source [id number] 12/24/2020 12:00:00 AM EDT [facility] Name Value Range Interpretation Code Description Data Ivelisse rce(s) Supporting Document(s) SARS coronavirus 2 Ag NEGATIVE [facility] This lab was ordered by [facility] and reported by [facility]. ID Date Data Source [id number] 12/17/2020 12:00:00 AM EDT [facility] Name Value Range Interpretation Code Description Data Ivelisse rce(s) Supporting Document(s) SARS coronavirus 2 Ag NEGATIVE [facility] This lab was ordered by [facility] [place] and reported by [facility]. ID Date Data Source [id number] 12/10/2020 12:00:00 AM EDT [facility] Name Value Range Interpretation Code Description Data Ivelisse rce(s) Supporting Document(s) SARS coronavirus 2 Ag NEGATIVE [facility] and reported by [facility]. ID Date Data Source [id number] 11/28/2020 12:00:00 AM EDT [facility] Name Value Range Interpretation Code Description Data Ivelisse rce(s) Supporting Document(s) SARS coronavirus 2 Ag NEGATIVE [facility] This lab was ordered by [facility] and reported by [facility]. ID Date Data Source [id number] 10/25/2020 10:05:45 AM EDT [facility] Name Value Range Interpretation Code Description Data Ivelisse rce(s) Supporting Document(s) Progress Note [facility] MJPDYl1hIeFGHrPp32/YJGivYEImz0FjDVxfQMj7DFnvMDKkR0DfFQM4tR9qAZH3URlHDyNmAmYlCGO9 [facility] [file] ICAgICAgICAgICAgICAgICAgICAgICAgICAgICAgICAgICAgICAgICAgICAgICAgICAgICAgICAgICAg ICAgICAgICAgICANCiAgICAgICAgICAgICAgICAgIC AgICAgICAgICAgICAgICAgICAgICAgICAgICAgICAgICAgICAgICAgICAgICAgICAgICAgICAgICAgIC AgICAgICAgICAgICAgICAgICAgICANCiAgICAgICAgICAgICAgICAgICAgICAgICAgICAgICAgICAgIC AgICAgICAgICAgICAgICAgICAgICAgICAgICAgICAg ICAgICAgICAgICAgICAgICAgICAgICAgICAgICAgICANCiAgICAgICAgICAgICAgICAgICAgICAgICAg ICAgICAgICAgICAgICAgICAgICAgICAgICAgICAgICAgICAgICAgICAgICAgICAgICAgICAgICAgICAg ICAgICAgICAgICAgICANCiAgICAgICAgICAgICAgIC AgICAgICAgICAgICAgICAgICAgICAgICAgICAgICAgICAgICAgICAgICAgICAgICAgICAgICAgICAgIC AgICAgICAgICAgICAgICAgICAgICAgICANCiAgICAgICAgICAgICAgICAgICAgICAgICAgICAgICAgIC AgICAgICAgICAgICAgICAgICAgICAgICAgICAgICAg ICAgICAgICAgICAgICAgICAgICAgICAgICAgICAgICAgICANCiAgICAgICAgICAgICAgICAgICAgICAg ICAgICAgICAgICAgICAgICAgICAgICAgICAgICAgICAgICAgICAgICAgICAgICAgICAgICAgICAgICAg ICAgICAgICAgICAgICAgICANCiAgICAgICAgICAgIC AgICAgICAgICAgICAgICAgICAgICAgICAgICAgICAgICAgICAgICAgICAgICAgICAgICAgICAgICAgIC AgICAgICAgICAgICAgICAgICAgICAgICAgICANCiAgICAgICAgICAgICAgICAgICAgICAgICAgICAgIC AgICAgICAgICAgICAgICAgICAgICAgICAgICAgICAg ICAgICAgICAgICAgICAgICAgICAgICAgICAgICAgICAgICAgICANCiAgICAgICAgICAgICAgICAgICAg ICAgICAgICAgICAgICAgICAgICAgICAgICAgICAgICAgICAgICAgICAgICAgICAgICAgICAgICAgICAg ICAgICAgICAgICAgICAgICAgICANCjw/yFCkC3pjcU GwdfF2B3spQp0QCp1OZG9qy7UkXKIuFNcgqzFcPhvHCdOjNTNvZtnJMyn0YCtwFJ0KdJHdB3IeR5TjWA tmQO9AJRBzCPFtwYWeEGPsEMOfPrM3MZUsLBubPQ9JfYIvDGyuMEVkRZFwGePfWRJkSP6SZPQtW727fl ZzXr9UNk7LLiDkIZ0gpg9PYfawKYXmGpkEVge7HIhu JA3KcMTasYAvZJLnHREZUaLzE9maw0KvIwvpQWALQHkjNP3Ib4NssASpXMu+At1FKS8ea6AqQZgvWTGx FE0cge7HPKnFKcIdV3XxdBihAVDbv5ucTHYmHU7ltYEbFPS9CGDtpemnnXEJLTYgDDGZfEAytIqiSJZH GCWfuKD7QeYqWvBgOPEaNWwkKVFZUCsZWwXwS2Cvm1 MsOfH9FEWqAvLuRAykWBAjDrF1RG11lSxdKQ9BNUMfYXHkSU72PSY0SOVbSl3BNp2VObKqIU6hix3KMY BaRTCyUhmXCoy4FXwrBH5PtCBbY8AjbJWkw4xWGnAgC1EZHHO8YFRiRd9ZLDBaEiVhXLIyHBskMV6qGZ RuUVUMkWuruiD2OY5CTP6kydQjNI8CYgVgUv2dKz3U RmTfV2AyC3IjPFZpHLWNMBpxZH0BVBxaWH4rNC2Ov3MLgMEfhX5wmi8UZWRbEAGcGvvtue0CQeevK6Q2 hJdsMXChCszzLEGWEIapVP8RHCHiENF0FZHcUiZfUAWXNiMuQ95cEC7FI9Com17eTlK2OEGrOzEdEVtw NK52nOhswaPqbJPhhDjvMS8UTd5+DQplbmRvYmoNCn luYQVQCjGeNMQAQgDzFJLfDMKhNXOhHuN2AxLrQv5HIZMlQBCeIGFxYiOaOANlREMsPGmoCBHaJTVaHk K6ZNYqEMXfQM4IWoQuUBAiNcL8FcQrMNAfAMIckh1ZLQAxTQHgTBI2EcUbPFKfUMPeRJrbEXHbSGO9TO vvCPOcWDSdRT3QUrIoAPFgLKMcRvejKVCjDSDevi4U ARArHGJhSlEfDKKhHMGaUMDlWGocDJWdKWO8PvQhRDRvFOGvJN2LGtIlBGFoVLgmGWBzJDBiTXCyta3C DIOuSMYwALT0QeXmKOAyJFZnIPaaXLUbZXE9KYI9DRCaMNDjZJ1MJgMlDLOcMMv2XjgwWYCpYJVqvm4A APGmPASnOBwlZDJmPBKgEDZmPHjuEAUoMNV2LXE0TI LwXSHaCP3TEmXaDTCaMoGeHVbbCZDyEVRenm1SZBUpNXNsWKI8UeHlGIVpXQRcCGerTJCsVOThDObsRW LvVJDfGW8TAqSzQVIyFiUzVbWfUUXrMEDtfk9EAQXkMBPwTbG3YbNpKLIuPCTcTRfuTFMoKGPnBrSiHP SjEMJgOJ4CFbSbGSOzMaE3BTSgCCXlIDExoj3IGKKr JSQuUdI3UdQnYDKaYBUqUUqtNGBaBUT7JZP7JYHkWMTsXH8GLfCdIAKeGbV5XjOlRXAoNHDlqc3LKCNz MHKmYUspUOJsPYGoKSBjQIpbQWMkJKT1BWU7NGGrTSUgVX5CNtQoYVSeMaAzGNYfEXTaUKJpsj5XYRXw NVVqEdTsQBDcYXKxKJAeGUdjXSHpIWIlSSD3QVOdLL FeHY2UErPvHMShSqUnCMiaMSKiPOVcjy6MSFWrROByMPJhDzBgHTVhAVXbBOzqNKXsUDYjISIcNXWbRD IbUS6MGsPmXAOuPaUrGTJzGREaWOYruc0OAMPuMTAcFeUbPFRdSYZiTMFdRGkeDOUsIBUgXZM0SMQvHF FnZX5APoAiRADyWyG7YMRdPHAiUELnhr3BZGYqROTv TtX4AtRvMXUgUKIcTBdaVAUwQNZ0WUX2XBHwNWDaKA2ONuViRRZtCpM9ELkuBHTyZDWsni2RVJCjXCMw NBu8EsQyHVGcOZSiLKn5yxCmeXYjENv8IU0LD6AfmcCwYAAAOn1Ea828QAZsKNOsQz1LU4juOk1yDOSd MUZYPm5PQGs8MNb0RukpAiSvJHNdHGK1DANpKEZ0G8 MxMzgxYzgzNTA+KKaiMvXqYHJ8DJCaKGGeSeEmGBVhFplgGfOzHRLqCJZ2AO3tUWNZZr6+DQpzdGFydH qoYSRKEvM9KEd5FIzaPSRVPp3I ID Date Data Source [id number] 10/23/2020 04:26:18 PM EDT [facility] MR EXTREMITY LOWER JOINT WITHOUT CONTRAS T [id number] RESULTInterpreted by:Bhupinder Warern MDEXAM: MRI Right Knee Without ContrastHISTORY: Medial [...] rce(s) Supporting Document(s) ID Date Data Source [id number] 10/10/2020 12:08:17 AM [facility] Name Value Range Interpretation Code Description Data Ivelisse rce(s) Supporting Document(s) Progress Note [facility] YSKJWc4sJuCOEcNx43/PZXjtGMWoy9LzGIfhGHj6BJpmNWGnW8MqMBD4bC2lPME5JNyZClYtHoWlRiEi lbm [file] AgICAgICAgICAgICAgICAgICAgICAgICAgICAgICAgICAgICAgICAgICAgICAgICAgICAgICAgICAgIC AgDQogICAgICAgICAgICAgICAgICAgICAgICAgICAg ICAgICAgICAgICAgICAgICAgICAgICAgICAgICAgICAgICAgICAgICAgICAgICAgICAgICAgICAgICAg ICAgICAgICAgICAgDQogICAgICAgICAgICAgICAgICAgICAgICAgICAgICAgICAgICAgICAgICAgICAg ICAgICAgICAgICAgICAgICAgICAgICAgICAgICAgIC AgICAgICAgICAgICAgICAgICAgICAgDQogICAgICAgICAgICAgICAgICAgICAgICAgICAgICAgICAgIC AgICAgICAgICAgICAgICAgICAgICAgICAgICAgICAgICAgICAgICAgICAgICAgICAgICAgICAgICAgIC AgICAgDQogICAgICAgICAgICAgICAgICAgICAgICAg ICAgICAgICAgICAgICAgICAgICAgICAgICAgICAgICAgICAgICAgICAgICAgICAgICAgICAgICAgICAg ICAgICAgICAgICAgICAgDQogICAgICAgICAgICAgICAgICAgICAgICAgICAgICAgICAgICAgICAgICAg ICAgICAgICAgICAgICAgICAgICAgICAgICAgICAgIC AgICAgICAgICAgICAgICAgICAgICAgICAgDQogICAgICAgICAgICAgICAgICAgICAgICAgICAgICAgIC AgICAgICAgICAgICAgICAgICAgICAgICAgICAgICAgICAgICAgICAgICAgICAgICAgICAgICAgICAgIC AgICAgICAgDQogICAgICAgICAgICAgICAgICAgICAg ICAgICAgICAgICAgICAgICAgICAgICAgICAgICAgICAgICAgICAgICAgICAgICAgICAgICAgICAgICAg ICAgICAgICAgICAgICAgICAgDQogICAgICAgICAgICAgICAgICAgICAgICAgICAgICAgICAgICAgICAg ICAgICAgICAgICAgICAgICAgICAgICAgICAgICAgIC AgICAgICAgICAgICAgICAgICAgICAgICAgICAgDQogICAgICAgICAgICAgICAgICAgICAgICAgICAgIC AgICAgICAgICAgICAgICAgICAgICAgICAgICAgICAgICAgICAgICAgICAgICAgICAgICAgICAgICAgIC ZuDHOnHDHpRMZgPXu2A4ecCOGzDJPyWY5mDTx3Ay8+ PKgLOlTtWWN8dbWnvR0HPX6xb6QvXHveHCFjl6BvTXq4QU3QQOLxMAcjRN9RYPlldd6AXCDxXBAyfJPF i7tdScAnSVQ2DYKeMpiaWW7IESXsT8tuhcWuPTIyEMISUTpyVPGQUJsrBAYPFD7XTnVwU3EvuZ60VWPW Cj4+UPwmcpTeIuqOWvSvEUYhk9BrPTj1WZ6FOSOfCu idu2CoPYMlMFCLMVkeTB0WKSG6SLOwVAGuQv7UCECxE882mnNcFI6ZWi2HJxSmKZ3vwg6VMHHlBAAsHk pBIme9ORfsMJ0VyVMvZKyCpp8jlaFegwECo6MfliEoxXATAL3hGPllGAE7mSOeLugev7fipbvxRNIeZM EtLt3oGB1mZAFmHHBeRmB9AXQSNN5GNFOcLXWrzNKz TCSmFIANUB9DZZaiLYV5JYWmjtLdzXBlSZrdJU0BWRBfmtBzGBEtVKZYFPw+Cv2IID7fu4HtEFo4CgHi FF5dlz4XKKuOWiByF1K2rVIfD4O5YJakPj7UQJUvPQPqSrmhNUNJWMfmUI7HBI1ycuQ1IJ1SxARcVZLa KUIgzWUsKDh8I22oeKJrFHjnEP3DCLZ+Neri+Pg0KIC MnTBRyLOIlJmYzYTDLCdGaN3HzD0HXz4XeY1IoAG55zQdstyIhUGgqYF5KUD9bOOXmKTMAGK1NwHGpjR 4ljbX2SGIjXQFVEiEaJ55fpWSoCZNyJAR0KYLkPt3UFYTaS5UmxqOuhMouenInWKAiIMSBPF5HNPosxo AyuKRjsVbjUA71mTmlSV2OOp9BOaEuLS0neq0CbMAc Yj8LYLE3Dh8UCXNyCXVbJKHpTCR8RRRlJcZjRRmhLBRhBMQmTNS1EKGcYDOiDT2HEtNpQFMsRWI7QZFb USLnKEBqbr6DSWIlOYL2TPYaUBQpDKEtVMCgWUdeUJLiSBGiZKE9AQFeGIExJN8RWwKoJHTrEMQ3IJAx TAOhBJKayu5HPVPuLIUpSoeyCgSnKDVgUUQgGGecCP XqCDM4Avl7GCMxZZFbRX1WSbRfQBPfSPA5ENksQWKjSVOnwk2QGCOuUMRlWDK9VURlLEHwOWVnCBvmJK IqGOW5CVM9WHFcOGWeZG0EKuSjNHErVBV9UswlPHMoDEIjxq0FSFAmECZsDHOpEuDzRHZcNCTzJAbcOX QnPZJiMrG1TGQwQZHkMS9EPyKbRONnRYUyOniyAOXt XIFfyy9NZSYdUNOsBgF5EGElQJTbHMIgKFfeWJEhVTUbQRE3INRfIVIyHQ9ZLfPnSVAbGmA7JwWqBUDb JCEdvj0UVIYiKROsIGN4LiUgYTIdTEWtZItjIANhOEA6MiDfMHMcHMXgKY7VEfCcPPRoGaO9UJumXOWe WBUvwl2RDBPlMFDrNbG1DIKqTFBbAZPoVJbtQJYsPW N1JOs0HOMmBSJtWG0LPkLpMIGlWihxHYWhTZNxOOCecr1BTPRfHGAcWdC5LhFmNIEdXDOlRWfvOJEiKF F0HrU5CREpDSQnEF8SMeSnPEJdNsu7UPuaOFNkJGUqio7SFMKjZQScVPX5JeQmAIOrODFhLPdjMGCrYB W9XfI9OGGpCXWoMB9MKkQbEFHcLql0KXdjHVCrGLWu nc7YEXLbSFQsWKe9PENvSATpLXFuUGfgHJJbZBU5ALJ1OAHgXVJeNJ9XByMfFCXiPQYwVtUtVGAhMWJo pq6SAZOyZBJ9OWK6HuMnCNVyZSNpFYzmMNGhNDG9EpP9AXXhMAFjNR4REpAcTTYbFFM6GUVtOOLlRQXe vx4MEILqQVX9BPa6CkVqGQLgLBTpEXcgOTDlWXC1Cb DvDPMcYEQkEZ8PXcXeSMGgVENkFxszPUZiLTIbbx0PJRJlITB2Pth1VPAgZPOmFQVtALewPOAoMYX5Zp ZcORJqPHQjYQ8JPkDqZWByESyuXSFiHICeZRSwdo5AZNBvIIC0PMScPgLpEFXyBMCgNXr0shCjeXEvEA x9CU4OJ1EtvbCkYZXYPl5Jr008ICNtPMJtGf4UX6dl Rt2rUMYeYQFKLe0KYQs7FqTpPSVlXnF2Xik5HZLxMkUcLJjoWxjtOVozIPJvSOP+KGmjVYS8MVPuLZWi DAuxPiBiYxW5FDZrS0SmE2H4VgQlYR1qVXRQHq4+LMohsZHzuIjaAMLMPsT6MmnsWZcuOANPPe7T ID Date Data Source [id number] 09/14/2020 07:26:00 PM EDT [facility] Name Value Range Interpretation Code Description Data Ivelisse rce(s) Supporting Document(s) SARS-CoV-2 RNA Resp Ql RADHA+probe NOT DETECTED [facility] This lab was ordered by [facility] and reported by [facility]. ID Date Data Source [id number] 08/27/2020 02:33:01 PM EDT [facility] Name Value Range Interpretation Code [...] TB1 MINUS NIL @ 0.02 IU/mL [facility] TB2 MINUS NIL @ 0.03 IU/mL [facility] MITOGEN MINUS NIL @ 9.97 IU/mL [facility] NIL RESULT @ 0.03 IU/mL [facility] ID Date Data Source [id number] 08/26/2020 02:49:29 PM EDT [facility] Name Value Range Interpretation Code [...] APR 02, 2017). ID Date Data Source [id number] 08/18/2020 09:03:00 AM EDT [facility] Name Value Range Interpretation Code Description Data Ivelisse rce(s) Supporting Document(s) SARS COVID ANTIGEN NEGATIVE [facility] This lab was ordered by MARYLIN berrios nd reported by [facility]. ID Date Data Source [id number] 03/24/2020 12:00:00 AM EST [facility] Name Value Range Interpretation Code Description Data Ivelisse rce(s) Supporting Document(s) SARS coronavirus 2 RNA [Presence] in Res piratory specimen by RADHA with probe detection [facility] This lab was ordered by [facility] and reported by [facility]. Procedure Social History Code Duration Value Status Description Data Source(s ) Alcohol intake 10/25/2020 12:00:00 AM EDT Current non-d dariel of alcohol (finding) completed Current non-drinker of alcohol (finding) [facility] Tobacco use and exposure 10/25/2020 12:00:00 AM EDT Never used co mpleted Never used [facility] Smoking 10/25/2020 12:00:00 AM EDT Never smoker completed Never s moker [facility] Alcohol intake 10/09/2020 12:00:00 AM EDT Current non-d dariel of alcohol (finding) completed Current non-drinker of alcohol (finding) [facility] Vital Signs ID Date Data Source UNK Name Value Range Interpretation Code Description Data Source(s) Body weight 147 [lb_av] 147 [lb_av] eCW1 ([facility]) Body height 67.5 [in_i] 67.5 [in_i] eCW1 ([facility]) Body mass index (BMI) [Ratio] 22.68 kg/m2 22.68 kg/m2 eCW1 ([facility]) Heart rate 84 /min 84 /min [facility] Respiratory rate 18 /min 18 /min eCW1 ([facility]) Body temperature 98.4 [degF] 98.4 [degF] eCW1 ( [facility]) Systolic blood pressure 113 mm[Hg] 113 mm[Hg] e CW1 ([facility]) Diastolic blood pressure 73 mm[Hg] 73 mm[Hg] eCW1 ([facility]) Patient Treatment Plan of Care Planned Activity Planned Date Details Description Data Source (s) Sertraline 50 MG Oral Tablet 12/28/2019 12:00:00 AM EDT eCW1 ([facility]) Sertraline 50 MG Oral Tablet 12/28/2019 12:00:00 AM EDT eCW1 ([facility]) Sertraline 50 MG Oral Tablet 12/28/2019 12:00:00 AM EDT eCW1 ([facility]) 21 DAY Ethinyl Estradiol 0.436122 MG/HR / Etonogestrel 0.005 MG/HR Vaginal Ring 02/03/2018 12:00:00 AM EST [facility] Dicyclomine Hydrochloride 20 MG Oral Tablet 12/30/2017 12:00:00 AM EDT [facility] Omeprazole 20 MG Delayed Release Oral Capsule [facility] Simethicone 80 MG Chewable Tablet [facility]
[2021-02-05 10:40] LABS: BASO % 0.5 % (0.0-1.0); EOS % 0.7 % (0.0-3.0); HEMATOCRIT 37.3 % (36.0-47.0); HEMOGLOBIN 12.9 g/dl (12.0-15.5); LYMPH # 0.7 10^3/uL (1.5-5.0); LYMPH % 15.9 % (24.0-44.0); MEAN CORPUSCULAR HEMOGLOBIN 30.4 pg (27.0-33.0); MEAN CORPUSCULAR HGB CONC 34.6 g/dl (32.0-36.5); MEAN CORPUSCULAR VOLUME 87.8 fl (80.0-96.0); MONO # 0.3 10^3/uL (0.0-0.8); MONO % 6.6 % (2.0-8.0); NEUTROPHILS # 3.1 10^3/uL (1.5-8.5); NEUTROPHILS % 76.1 % (36.0-66.0); PLATELET COUNT, AUTOMATED 126 10^3/uL (150-450); RED BLOOD COUNT 4.25 10^6/uL (4.00-5.40); WHITE BLOOD COUNT 4.1 10^3/uL (4.0-10.0)
[2021-02-05 11:13] LABS: HCG, SERUM QUALITATIVE NEGATIVE (NEGATIVE)
[2021-02-05 11:22] LABS: BLOOD UREA NITROGEN 7 MG/DL (7-18); CALCIUM LEVEL 9.3 MG/DL (8.5-10.1); CARBON DIOXIDE LEVEL 26 MEQ/L (21-32); CHLORIDE LEVEL 106 MEQ/L (98-107); CREATININE FOR GFR 0.65 MG/DL (0.55-1.30); GLUCOSE, FASTING 95 MG/DL (70-100); POTASSIUM SERUM 3.7 MEQ/L (3.5-5.1); SODIUM LEVEL 138 MEQ/L (136-145)
[2021-02-05] MEDS ORDERED: NS 1,000 ML IV ONE ×2 (11:30→13:05)
[2021-02-05 11:46] LABS: MONO SCRN NEGATIVE (NEGATIVE)
[2021-02-05] MEDS ORDERED: ACETAMINOPHEN TAB 650MG DOSE (2X325MG) PO ONE (12:00)
[2021-02-05] MEDS ORDERED: KETOROLAC 30 MG/ML 1ML VIAL IV ONE (12:00)
[2021-02-05] MEDS ORDERED: METOCLOPRAMIDE INJ 10MG/2ML VIAL (J2765 PER 1) IV ONE (12:00)
--- NOTE | 2021-02-05 12:08 | REP ---
INDICATION: cough, dizziness, fever COMPARISON: 08/18/2020 TECHNIQUE: PA and lateral. FINDINGS: The mediastinum and cardiac silhouette are normal. The lung younger are clear and without acute consolidation, effusion, or pneumothorax. The skeletal structures are intact and normal. IMPRESSION: No acute cardiopulmonary process. <Electronically signed by Juvenal Rosas > 02/05/21 [id number]
[2021-02-05 14:19] VITALS: BP 102/53
--- NOTE | 2021-02-08 07:30 | ECGEPIP ---
[facility] - ED Test Date: 2021-02-05 Pat Name: RONALD MCKEE Department: Room: - Gender: Female Frame Aligner: PATTI : 2000 Requested By: Amalia Kuhn Order Number: [id number] Reading MD: Amalia Kuhn Measurements Intervals [place] Rate: 90 P: 69 CA: 134 QRS: 55 QRSD: 78 T: -4 QT: 370 QTc: 452 Interpretive Statements Normal sinus rhythm Nonspecific ST and T wave abnormality increased rate 08/18/20 Electronically Signed on 02-08-2021 7:29:57 EST by Amalia Kuhn
== END 2021-02-05 14:25 | disposition home or self-care (01) ==
LOC: M ED 07:54
DX: I95.1 Orthostatic hypotension (principal); R42 Dizziness and giddiness; R51.9 Headache, unspecified; J02.9 Acute pharyngitis, unspecified; R05.9 Cough, unspecified; K58.8 Other irritable bowel syndrome; Z88.2 Allergy status to sulfonamides
CPT/HCPCS: 36415; 71046; 80048; 84703; 85025; 86308; 87798; 87880; 93005; 96361; 96374; 96375; 99284; J1885; J2765

== ENCOUNTER → 2021-03-05 | Outpatient (REF) | LOC: M LABSMTC 12:03 | PROVIDERS: ATTEND Family Medicine | DX: Z11.52 Encounter for screening for COVID-19 (principal) ==

== ENCOUNTER → 2021-03-10 | Outpatient (REF) ==
[~2021-03-10] MED LIST changes: +METH-1164 PO
== END ==
LOC: M LABSMTC 09:29
PROVIDERS: ATTEND Family Medicine
DX: Z11.52 Encounter for screening for COVID-19 (principal)

== ENCOUNTER → 2021-03-14 | Outpatient (REF) ==
[~2021-03-14] MED LIST changes: -METH-1164 PO
== END ==
LOC: M LABSMTC 09:05
PROVIDERS: ATTEND Family Medicine
DX: Z20.822 Contact with and (suspected) exposure to COVID-19 (principal)

== ENCOUNTER 2021-04-19 04:53 | Emergency (ER) | payer BC, MEDICAID, OTHER ==
[~2021-04-19] VITALS: Ht 170.2 cm; Wt 65.9 kg
[2021-04-19 04:54] VITALS: BP 112/67
[2021-04-19] MEDS ORDERED: METH-1164 PO (06:58)
== END 2021-04-19 07:10 | disposition home or self-care (01) ==
LOC: M ED 04:53
DX: S16.1XXA Strain of muscle, fascia and tendon at neck level, initial encounter (principal); W06.XXXA Fall from bed, initial encounter; Y92.009 Unspecified place in unspecified non-institutional (private) residence as the place of occurrence of the external cause; Y93.9 Activity, unspecified; Y99.9 Unspecified external cause status; Z88.1 Allergy status to other antibiotic agents; Z88.2 Allergy status to sulfonamides

== ENCOUNTER 2021-04-30 17:25 | Emergency (ER) | payer MEDICAID ==
[~2021-04-30] VITALS: Ht 170.2 cm; Wt 63.6 kg
[~2021-04-30 17:25] MED LIST changes: +METH-1164 PO
[2021-04-30 22:06] VITALS: BP 112/70
== END 2021-04-30 22:58 | disposition left against medical advice (07) ==
LOC: M ED 17:25
DX: Z53.21 Procedure and treatment not carried out due to patient leaving prior to being seen by health care provider (principal)

== ENCOUNTER → 2021-06-13 | Outpatient (REF) | payer OTHER ==
[2021-06-13 18:41] LABS: GC DNA AMPLIFICATION NEGATIVE (NEGATIVE)
== END ==
LOC: M LAB REF 15:34
PROVIDERS: ATTEND Internal Medicine
DX: N39.0 Urinary tract infection, site not specified (principal)

== ENCOUNTER 2021-06-25 09:43 | Emergency (ER) | payer OTHER ==
[~2021-06-25] VITALS: Ht 172.7 cm; Wt 68.2 kg
[2021-06-25 09:43] VITALS: BP 109/64
[2021-06-25] MEDS ORDERED: LEXA5TAB13 PO (09:57)
== END 2021-06-25 12:30 | disposition left against medical advice (07) ==
LOC: M ED 12:02
DX: Z53.29 Procedure and treatment not carried out because of patient's decision for other reasons (principal)

== ENCOUNTER → 2021-08-08 | Outpatient (REF) | payer OTHER ==
[~2021-08-08] MED LIST changes: +LEXA5TAB13 PO; -MICR1TAB18; +NORE1TAB94
[2021-08-09 00:21] LABS: GC DNA AMPLIFICATION NEGATIVE (NEGATIVE)
== END ==
LOC: M WUC 20:10
PROVIDERS: ATTEND Physician Assistant
DX: R30.0 Dysuria (principal)

== ENCOUNTER 2021-09-18 19:35 | Emergency (ER) | payer OTHER ==
[~2021-09-18] VITALS: Ht 172.7 cm; Wt 66.4 kg
[2021-09-18 19:37] VITALS: BP 116/60
[2021-09-18 21:59] LABS: BASO % 0.5 % (0.0-1.0); EOS # 0.3 10^3/uL (0.0-0.5); EOS % 4.8 % (0.0-3.0); HEMATOCRIT 38.6 % (36.0-47.0); HEMOGLOBIN 13.5 g/dl (12.0-15.5); LYMPH # 2.5 10^3/uL (1.5-5.0); LYMPH % 40.3 % (24.0-44.0); MEAN CORPUSCULAR HEMOGLOBIN 30.4 pg (27.0-33.0); MEAN CORPUSCULAR VOLUME 86.9 fl (80.0-96.0); MONO # 0.3 10^3/uL (0.0-0.8); MONO % 5.6 % (2.0-8.0); NEUTROPHILS % 48.6 % (36.0-66.0); PLATELET COUNT, AUTOMATED 186 10^3/uL (150-450); RED BLOOD COUNT 4.44 10^6/uL (4.00-5.40); WHITE BLOOD COUNT 6.1 10^3/uL (4.0-10.0)
[2021-09-18 22:09] LABS: BLOOD UREA NITROGEN 9 MG/DL (7-18); CALCIUM LEVEL 9.8 MG/DL (8.5-10.1); CARBON DIOXIDE LEVEL 31 MEQ/L (21-32); CHLORIDE LEVEL 110 MEQ/L (98-107); CREATININE FOR GFR 0.59 MG/DL (0.55-1.30); GLOMERULAR FILTRATION RATE > 60.0 (>60); GLUCOSE, FASTING 101 MG/DL (70-100); POTASSIUM SERUM 3.7 MEQ/L (3.5-5.1); SODIUM LEVEL 141 MEQ/L (136-145)
[2021-09-19 00:12] LABS: GC DNA AMPLIFICATION NEGATIVE (NEGATIVE)
== END 2021-09-19 00:18 | disposition home or self-care (01) ==
LOC: M ED 19:35
DX: N83.201 Unspecified ovarian cyst, right side (principal); N93.9 Abnormal uterine and vaginal bleeding, unspecified; Z79.899 Other long term (current) drug therapy; Z88.1 Allergy status to other antibiotic agents; Z88.2 Allergy status to sulfonamides; Z97.5 Presence of (intrauterine) contraceptive device

== ENCOUNTER → 2021-12-26 | Outpatient (CLI) | payer OTHER ==
[2021-12-26 14:28] LABS: PLATELET COUNT, AUTOMATED 165 10^3/uL (150-450)
[2021-12-26 14:46] LABS: INR 1.02; PARTIAL THROMBOPLASTIN TIME 27.7 SECONDS (25.9-37.0); PROTHROMBIN TIME 13.8 SECONDS (12.7-14.5)
== END ==
LOC: M LAB 13:29
PROVIDERS: ATTEND Physician Assistant Surgical
DX: M53.3 Sacrococcygeal disorders, not elsewhere classified (principal)

== ENCOUNTER → 2022-06-12 | Outpatient (REF) | payer OTHER | LOC: M LAB REF 12:14 | PROVIDERS: ATTEND Family Medicine | DX: N39.0 Urinary tract infection, site not specified (principal) ==

== ENCOUNTER → 2022-07-07 | Outpatient (CLI) | payer OTHER | LOC: M WUC 08:16 | PROVIDERS: ATTEND Nurse Practitioner Family | DX: M79.645 Pain in left finger(s) (principal) ==

== ENCOUNTER → 2022-10-06 | Outpatient (CLI) | payer OTHER ==
[~2022-10-06] MED LIST changes: +ETON1VAG7; -NUVAMIS2
== END ==
LOC: M WHC 07:16
PROVIDERS: ATTEND Nurse Practitioner Family
DX: N63.21 Unspecified lump in the left breast, upper outer quadrant (principal)

== ENCOUNTER → 2022-10-12 | Outpatient (CLI) | payer OTHER ==
[2022-10-12 15:55] LABS: APPEARANCE, URINE CLEAR (CLEAR); BACTERIA, URINE AUTO NEGATIVE (NEGATIVE); BILIRUBIN, URINE AUTO NEGATIVE (NEGATIVE); BLOOD, URINE BLOOD NEGATIVE (NEGATIVE); COLOR, URINE YELLOW (YELLOW); GLUCOSE, URINE (UA) AUTO NEGATIVE (NEGATIVE); KETONE, URINE AUTO NEGATIVE (NEGATIVE); LEUKOCYTE ESTERASE, URINE AUTO NEGATIVE (NEGATIVE); MUCUS, URINE SMALL (NEGATIVE); NITRITE, URINE AUTO NEGATIVE (NEGATIVE); PROTEIN, URINE AUTO NEGATIVE (NEGATIVE); RBC, URINE AUTO 1 /HPF (0-3); SPECIFIC GRAVITY URINE AUTO 1.019 (1.002-1.035); SQUAMOUS EPITHELIAL CELL UR AU 0 /HPF (0-6); UROBILINOGEN, URINE AUTO 0.2 mg/dL (0.0-2.0); WBC, URINE AUTO 1 /HPF (0-3)
== END ==
LOC: M LAB 15:13
PROVIDERS: ATTEND Nurse Practitioner Family
DX: R30.0 Dysuria (principal)

== ENCOUNTER 2022-11-07 09:25 | Emergency (ER) | payer OTHER ==
[~2022-11-07] VITALS: Ht 172.7 cm; Wt 83.8 kg
[2022-11-07 11:49] LABS: BASO % 0.6 % (0.0-1.0); EOS # 0.1 10^3/uL (0.0-0.5); EOS % 2.8 % (0.0-3.0); HEMATOCRIT 40.8 % (36.0-47.0); HEMOGLOBIN 13.7 g/dl (12.0-15.5); LYMPH # 1.8 10^3/uL (1.5-5.0); LYMPH % 34.6 % (24.0-44.0); MEAN CORPUSCULAR HEMOGLOBIN 28.9 pg (27.0-33.0); MEAN CORPUSCULAR HGB CONC 33.6 g/dl (32.0-36.5); MEAN CORPUSCULAR VOLUME 86.1 fl (80.0-96.0); MONO # 0.3 10^3/uL (0.0-0.8); MONO % 4.9 % (2.0-8.0); NEUTROPHILS # 2.9 10^3/uL (1.5-8.5); NEUTROPHILS % 56.9 % (36.0-66.0); RED BLOOD COUNT 4.74 10^6/uL (4.00-5.40); WHITE BLOOD COUNT 5.1 10^3/uL (4.0-10.0)
[2022-11-07 11:56] LABS: HCG, SERUM QUALITATIVE NEGATIVE (NEGATIVE); LIPASE 33 U/L (12-53)
[2022-11-07 11:57] LABS: ALBUMIN 4.1 G/DL (3.2-5.2); ALKALINE PHOSPHATASE 71 U/L (46-116); ALT/SGPT 11 U/L (7.0-40); AST/SGOT < 8 U/L (<34); BILIRUBIN,DIRECT 0.2 MG/DL (<0.4); BILIRUBIN,TOTAL 0.6 MG/DL (0.3-1.2); BLOOD UREA NITROGEN 6 MG/DL (9-23); CALCIUM LEVEL 9.7 MG/DL (8.5-10.1); CARBON DIOXIDE LEVEL 26 MMOL/L (20-31); CHLORIDE LEVEL 105 MMOL/L (98-107); CREATININE FOR GFR 0.57 MG/DL (0.55-1.30); GLOMERULAR FILTRATION RATE > 60.0 (>60); GLUCOSE, FASTING 93 MG/DL (60-100); POTASSIUM SERUM 4.1 MMOL/L (3.5-5.1); SODIUM LEVEL 138 MMOL/L (136-145); TOTAL PROTEIN 7.7 G/DL (5.7-8.2)
[2022-11-07] MEDS ORDERED: ISOVUE-370 76% 100ML VIAL As Ordered ONE (12:14)
[2022-11-07 12:34] LABS: AMYLASE 86 U/L (30-118)
[2022-11-07 13:58] VITALS: BP 101/55; TEMP 98.7; O2SAT 98
== END 2022-11-07 13:59 | disposition home or self-care (01) ==
LOC: M ED 09:25
DX: K59.00 Constipation, unspecified (principal); N83.201 Unspecified ovarian cyst, right side; Z88.2 Allergy status to sulfonamides
CPT/HCPCS: 36415; 74177; 80048; 80076; 82150; 83690; 84703; 85025; 99284; Q9967

== ENCOUNTER → 2022-11-09 | Outpatient (CLI) | payer OTHER | LOC: M WHC 13:12 | PROVIDERS: ATTEND Nurse Practitioner Family | DX: N63.21 Unspecified lump in the left breast, upper outer quadrant (principal) ==

== ENCOUNTER → 2023-04-29 | Outpatient (CLI) | payer OTHER ==
[~2023-04-29] MED LIST changes: +PROHANCE 279.3MG/ML 15ML VIAL ONE
== END ==
LOC: M PLAIMG 13:55
PROVIDERS: ATTEND Family Medicine
DX: H93.13 Tinnitus, bilateral (principal)
CPT/HCPCS: 70553; A9576

== ENCOUNTER → 2023-07-07 | Outpatient (REF) | payer OTHER ==
[~2023-07-07] MED LIST changes: -PROHANCE 279.3MG/ML 15ML VIAL ONE
[2023-07-07 14:43] LABS: RHEUMATOID FACTOR QUANT < 3.5 IU/ML (<14)
[2023-07-08 15:08] LABS: ANTINUCLEAR ANTIBODIES DIRECT Negative (Negative)
== END ==
LOC: M LAB REF 12:11
PROVIDERS: ATTEND Family Medicine
DX: R51.9 Headache, unspecified (principal)

== ENCOUNTER → 2023-07-23 | Outpatient (REF) | payer OTHER | LOC: M LAB REF 11:55 | PROVIDERS: ATTEND Physician Assistant Medical | DX: J02.9 Acute pharyngitis, unspecified (principal) ==

== ENCOUNTER → 2023-07-26 | Outpatient (CLI) | payer OTHER ==
[2023-07-26 15:51] LABS: HCG, SERUM QUALITATIVE NEGATIVE (NEGATIVE)
== END ==
LOC: M LAB 13:57
PROVIDERS: ATTEND Obstetrics & Gynecology Obstetrics
DX: N91.2 Amenorrhea, unspecified (principal)

== ENCOUNTER → 2023-07-28 | Outpatient (CLI) | payer OTHER ==
[2023-07-28 11:36] LABS: HCG, SERUM QUANTITATIVE 7.9 MIU/ML (<4.2)
[2023-07-28 11:42] LABS: HCG, SERUM QUALITATIVE NEGATIVE (NEGATIVE)
== END ==
LOC: M LAB 10:09
PROVIDERS: ATTEND Obstetrics & Gynecology Obstetrics
DX: N91.2 Amenorrhea, unspecified (principal); Z32.02 Encounter for pregnancy test, result negative

== ENCOUNTER → 2023-08-02 | Outpatient (CLI) | payer OTHER ==
[2023-08-02 11:55] LABS: HCG, SERUM QUALITATIVE POSITIVE (NEGATIVE)
== END ==
LOC: M LAB 08:47
PROVIDERS: ATTEND Obstetrics & Gynecology Obstetrics
DX: N91.2 Amenorrhea, unspecified (principal)

== ENCOUNTER → 2023-08-04 | Outpatient (CLI) | payer OTHER | LOC: M LAB 08:31 | PROVIDERS: ATTEND Obstetrics & Gynecology Obstetrics | DX: Z32.01 Encounter for pregnancy test, result positive (principal) ==

== ENCOUNTER → 2023-08-18 | Outpatient (CLI) | payer OTHER | LOC: M WUC 10:10 | PROVIDERS: ATTEND Nurse Practitioner Family | DX: R05.9 Cough, unspecified (principal); J06.9 Acute upper respiratory infection, unspecified ==

== ENCOUNTER → 2023-09-08 | Outpatient (CLI) | payer OTHER ==
[2023-09-08 14:10] LABS: HEMATOCRIT 34.1 % (36.0-47.0); HEMOGLOBIN 11.7 g/dl (12.0-15.5); MEAN CORPUSCULAR HEMOGLOBIN 29.8 pg (27.0-33.0); MEAN CORPUSCULAR HGB CONC 34.3 g/dl (32.0-36.5); PLATELET COUNT, AUTOMATED 160 10^3/uL (150-450); RED BLOOD COUNT 3.92 10^6/uL (4.00-5.40); WHITE BLOOD COUNT 4.1 10^3/uL (4.0-10.0)
[2023-09-08 14:56] LABS: HIV 1&2 SCREEN NEGATIVE (NEGATIVE)
[2023-09-08 15:04] LABS: HEPATITIS C VIRUS ABY INDEX < 0.02 INDEX (<0.8)
[2023-09-08 15:06] LABS: GC DNA AMPLIFICATION NEGATIVE (NEGATIVE)
== END ==
LOC: M PLALAB 10:24
PROVIDERS: ATTEND Specialist
DX: Z34.81 Encounter for supervision of other normal pregnancy, first trimester (principal)

== ENCOUNTER → 2023-09-21 | Outpatient (CLI) | payer OTHER | LOC: M PLALAB 12:36 | PROVIDERS: ATTEND Advanced Practice Midwife | DX: Z34.80 Encounter for supervision of other normal pregnancy, unspecified trimester (principal) ==

== ENCOUNTER → 2023-10-19 | Outpatient (CLI) | payer OTHER | LOC: M PLALAB 09:04 | PROVIDERS: ATTEND Obstetrics & Gynecology | DX: Z34.80 Encounter for supervision of other normal pregnancy, unspecified trimester (principal) ==

== ENCOUNTER → 2023-11-16 | Outpatient (CLI) | payer OTHER | LOC: M WHC 12:51 | PROVIDERS: ATTEND Obstetrics & Gynecology | DX: Z34.92 Encounter for supervision of normal pregnancy, unspecified, second trimester (principal); Z3A.19 19 weeks gestation of pregnancy ==

== ENCOUNTER → 2023-11-24 | Outpatient (CLI) | payer OTHER | LOC: M RAD 11:56 | PROVIDERS: ATTEND Nurse Practitioner Women's Health | DX: Z34.82 Encounter for supervision of other normal pregnancy, second trimester (principal); Z3A.20 20 weeks gestation of pregnancy ==

== ENCOUNTER → 2023-12-16 | Outpatient (CLI) | payer OTHER ==
[2023-12-16 15:39] LABS: GLUCOSE CHALLENGE TEST 1 HOUR 124 MG/DL (LESS THAN 140)
[2023-12-16 15:40] LABS: HEMOGLOBIN 10.7 g/dl (12.0-15.5); MEAN CORPUSCULAR HEMOGLOBIN 30.1 pg (27.0-33.0); MEAN CORPUSCULAR HGB CONC 33.4 g/dl (32.0-36.5); MEAN CORPUSCULAR VOLUME 90.1 fl (80.0-96.0); PLATELET COUNT, AUTOMATED 179 10^3/uL (150-450); RED BLOOD COUNT 3.55 10^6/uL (4.00-5.40); WHITE BLOOD COUNT 5.8 10^3/uL (4.0-10.0)
[2023-12-16 16:11] LABS: HIV 1&2 SCREEN NEGATIVE (NEGATIVE)
[2023-12-16 16:19] LABS: HEPATITIS C VIRUS ABY INDEX 0.03 INDEX (<0.8)
[2023-12-16 17:19] LABS: GC DNA AMPLIFICATION NEGATIVE (NEGATIVE)
== END ==
LOC: M PLALAB 11:18
PROVIDERS: ATTEND Obstetrics & Gynecology
DX: Z34.82 Encounter for supervision of other normal pregnancy, second trimester (principal); N89.9 Noninflammatory disorder of vagina, unspecified

== ENCOUNTER 2024-02-10 08:50 | Outpatient (CLI) | payer OTHER ==
[~2024-02-10] VITALS: Ht 172.7 cm; Wt 82.9 kg
[2024-02-10] MEDS ORDERED: AMOX875T PO (09:06)
[2024-02-10] MEDS ORDERED: FAMO20TA PO (09:06)
[2024-02-10] MEDS ORDERED: PRENTAB9 PO (09:06)
[2024-02-10 09:07] VITALS: BP 107/67
[2024-02-10 10:17] VITALS: BP 111/62
== END 2024-02-10 12:58 | disposition home or self-care (01) ==
LOC: M LDO 08:50
PROVIDERS: ATTEND Obstetrics & Gynecology
DX: O36.8130 Decreased fetal movements, third trimester, not applicable or unspecified (principal); O26.893 Other specified pregnancy related conditions, third trimester; M54.50 Low back pain, unspecified; Z3A.31 31 weeks gestation of pregnancy
CPT/HCPCS: 59025; 76815; 76819; 76820; 81001; G0463

== ENCOUNTER → 2024-03-23 | Outpatient (REF) | payer OTHER ==
[~2024-03-23] MED LIST changes: +AMOX875T PO; +FAMO20TA PO; +PRENTAB9 PO
== END ==
LOC: M SFHCWAGY 16:54
PROVIDERS: ATTEND Advanced Practice Midwife
DX: Z34.03 Encounter for supervision of normal first pregnancy, third trimester (principal)

== ENCOUNTER 2024-03-29 03:01 | Outpatient (CLI) | payer OTHER ==
[~2024-03-29] VITALS: Ht 172.7 cm; Wt 87.5 kg
[2024-03-29 03:24] VITALS: BP 110/64
== END 2024-03-29 05:37 | disposition home or self-care (01) ==
LOC: M LDO 03:01
PROVIDERS: ATTEND Obstetrics & Gynecology
DX: O47.1 False labor at or after 37 completed weeks of gestation (principal); Z3A.38 38 weeks gestation of pregnancy; Z88.1 Allergy status to other antibiotic agents
CPT/HCPCS: 59025; G0463

== ENCOUNTER 2024-03-31 12:37 | Inpatient (IN) | payer OTHER ==
[~2024-03-31] VITALS: Ht 172.7 cm; Wt 86.7 kg
[2024-03-31] VITALS (29 sets, daily range): BP systolic 97–151; BP diastolic 53–75
[2024-03-31] MEDS ORDERED: LIDOCAINE 1% MDV 20ML VIAL INFIL PRN (17:30)
[2024-03-31] MEDS ORDERED: CARBOPROST TROMETHAMINE 250 MCG/ML AMP IM PRN (17:30)
[2024-03-31] MEDS ORDERED: OXYTOCIN DRIP 30 UNITS in IV 1 EA IV PRN (17:30)
[2024-03-31] MEDS ORDERED: OXYTOCIN INJ 10UNITS/ML 1ML VIAL IM PRN (17:30)
[2024-03-31 18:00] LABS: HEMATOCRIT 31.3 % (36.0-47.0); HEMOGLOBIN 10.4 g/dl (12.0-15.5); MEAN CORPUSCULAR HEMOGLOBIN 27.3 pg (27.0-33.0); MEAN CORPUSCULAR HGB CONC 33.2 g/dl (32.0-36.5); MEAN CORPUSCULAR VOLUME 82.2 fl (80.0-96.0); PLATELET COUNT, AUTOMATED 199 10^3/uL (150-450); RED BLOOD COUNT 3.81 10^6/uL (4.00-5.40); WHITE BLOOD COUNT 7.9 10^3/uL (4.0-10.0)
[2024-03-31] MEDS ORDERED: EPIDURAL/PCA KEYS XX PRN (18:40)
[2024-03-31] MEDS ORDERED: NALOXONE INJ 0.4MG/1ML VIAL IV PRN (18:40)
[2024-03-31] MEDS ORDERED: diphenhydrAMINE 50MG/ML VIAL IV PRN (18:40)
[2024-03-31] MEDS ORDERED: ePHEDrine SULFATE 25 MG/5 ML(5MG/ML) SYRINGE IVP PRN (18:40)
[2024-03-31] MEDS ORDERED: ONDANSETRON 4MG 2ML VIAL IV PRN (18:40)
[2024-03-31] MEDS ORDERED: LR 500 ML IV PRN (18:40)
[2024-03-31] MEDS: LACTATED RINGER'S 1000 ML IV STA (18:42)
[2024-03-31] MEDS: FENTANYL/ROPIVACAINE/NACL BAG 100 ML EPIDURAL SCH (18:46)
[2024-03-31] MEDS: LR 1,000 ML IV SCH (18:58)
[2024-03-31 19:01] LABS: HEPATITIS C VIRUS ABY INDEX < 0.02 INDEX (<0.8)
[2024-03-31] MEDS ORDERED: LR 1,000 ML IV SCH (19:15)
[2024-03-31] MEDS ORDERED: OXYTOCIN DRIP 30 UNITS in IV 1 EA IV SCH (19:15)
[2024-03-31] MEDS: FAMOTIDINE 20 MG TAB PO ONE (21:31)
[2024-03-31] MEDS: METHYLERGONOVINE MALEATE 0.2MG/ML 1ML VIAL IM PRN (22:37)
[2024-03-31 22:38] LABS: CORD GAS ABE A -1.1; CORD GAS HCO3 V 21.3 MMOL/L; CORD GAS O2 SAT A 30.7 %; CORD GAS O2 SAT V 74.6 %; CORD GAS PCO2 A 58.1 mmHg; CORD GAS PCO2 V 36.4 mmHg; CORD GAS PH A 7.285 UNITS; CORD GAS PH V 7.386 UNITS; CORD GAS PO2 A 16.5 mmHg; CORD GAS PO2 V 30.9 mmHg; CORD GAS SBC A 21.8 MMOL/L; CORD GAS SBC V 21.4 MMOL/L; CORD GAS TCO2 A 28.8 MMOL/L; CORD GAS TCO2 V 22.5 MMOL/L
[2024-03-31] MEDS: TRANEXAMIC ACID INJection 1,000 MG in NS 100 ML IV PRN (22:49)
[2024-03-31] MEDS ORDERED: METHYLERGONOVINE MALEATE 0.2 MG TAB PO PRN (23:50)
[2024-03-31] MEDS ORDERED: IBUPROFEN 600MG TAB PO PRN (23:50)
[2024-03-31] MEDS ORDERED: ACETAMINOPHEN 325 MG TAB PO PRN (23:50)
[2024-03-31] MEDS ORDERED: RHOGAM 300MCG (1500IU) INJ IM SCH (23:50)
[2024-04-01] MEDS: IBUPROFEN 800 MG TAB PO PRN (00:11)
[2024-04-01] MEDS: ACETAMINOPHEN 500 MG TAB PO PRN (00:11)
[2024-04-01 01:00] VITALS: BP 108/62; O2SAT 98
[2024-04-01] MEDS: DIBUCAINE 1% OINTMENT 30GM TOP PRN (01:21)
[2024-04-01 06:00] VITALS: BP 112/58; O2SAT 96
[2024-04-01] MEDS: PRENATAL VITAMINS CHEWABLE TABLET PO SCH (09:14)
[2024-04-01 18:00] VITALS: BP 108/61; O2SAT 97
[2024-04-01] MEDS: DOCUSATE SODIUM 100MG CAPSULE PO PRN (20:11)
[2024-04-02 05:57] VITALS: BP 102/56; O2SAT 97
[2024-04-02] MEDS: MEASLES,MUMPS,RUBELLA VACCINE INJ (MMR-II) SC.IMMUN ONE (08:44)
== END 2024-04-02 14:42 | disposition home or self-care (01) | DRG 807 ==
LOC: M LDO 12:37 → M LDI 17:15 → M OBS 04-01 01:00
PROVIDERS: ADMIT Advanced Practice Midwife; ATTEND Advanced Practice Midwife
PROC: 10E0XZZ Delivery of Products of Conception, External Approach (ICD-10-PCS; principal; 2024-03-31)
PROC: 0KQM0ZZ Repair Perineum Muscle, Open Approach (ICD-10-PCS; 2024-03-31)
PROC: 10907ZC Drainage of Amniotic Fluid, Therapeutic from Products of Conception, Via Natural or Artificial Opening (ICD-10-PCS; 2024-03-31)
DX: O66.0 Obstructed labor due to shoulder dystocia (principal); Z37.0 Single live birth; Z3A.38 38 weeks gestation of pregnancy; O70.1 Second degree perineal laceration during delivery

== ENCOUNTER → 2024-07-11 | Outpatient (REF) | payer OTHER | LOC: M LAB REF 19:00 | PROVIDERS: ATTEND Physician Assistant | DX: N61.0 Mastitis without abscess (principal) ==

== ENCOUNTER → 2024-10-10 | Outpatient (REF) | payer OTHER ==
[2024-10-10 18:27] LABS: INR 1.1
== END ==
LOC: M LAB REF 16:57
PROVIDERS: ATTEND Nurse Practitioner Adult Health
DX: R23.3 Spontaneous ecchymoses (principal)

== ENCOUNTER → 2025-01-04 | Outpatient (REF) | payer OTHER ==
[~2025-01-04] MED LIST changes: +NORE-23; -NORE1TAB94
== END ==
LOC: M LAB REF 16:50
PROVIDERS: ATTEND Physician Assistant Medical
DX: J02.9 Acute pharyngitis, unspecified (principal)

== ENCOUNTER → 2025-01-18 | Outpatient (CLI) | payer OTHER | LOC: M WHC 15:17 | PROVIDERS: ATTEND Physician Assistant | DX: Z53.9 Procedure and treatment not carried out, unspecified reason (principal) ==

== ENCOUNTER → 2025-01-22 | Outpatient (CLI) | payer OTHER | LOC: M RAD 08:10 | PROVIDERS: ATTEND Physician Assistant | DX: Z30.431 Encounter for routine checking of intrauterine contraceptive device (principal) ==